=== PATIENT | female | born 1930 | race Caucasian/White ===

== ENCOUNTER 2017-02-19 06:27 | Inpatient (IN) | payer OTHER, MEDICARE ==
[~2017-02-19] VITALS: Ht 157.5 cm; Wt 69.9 kg
[~2017-02-19 06:27] MED LIST: AMLO5TAB22 PO; ARMO60TA PO; ATOR20TA PO; BIOTCAP PO; CALC500T21 PO; CLOP75TA PO; FISH1000 PO; GLIP2.5T2 PO; JANU100T PO; LISI-363 PO; METF500 PO; METO50TA11 PO
[2017-02-19] MEDS: NS 1000P @30 MLS/HR (KVO) IV SCH (07:00)
[2017-02-19] MEDS ORDERED: diphenhydrAMINE HCL 50 MG CAP PO SCH (07:00)
[2017-02-19 07:28] VITALS: BP 133/75; PULSE 84; RESP 18; TEMP 97.9; O2SAT 97
[2017-02-19] MEDS ORDERED: CALC1TAB12 PO (07:36)
[2017-02-19] MEDS ORDERED: ARMO60TA PO (07:36)
[2017-02-19] MEDS ORDERED: ASPI81TA81 PO (07:36)
[2017-02-19] MEDS ORDERED: SACU1TAB7 PO (07:36)
[2017-02-19] MEDS ORDERED: METO50TA11 PO (07:36)
[2017-02-19] MEDS ORDERED: PLAV75TA29 PO (07:36)
[2017-02-19] MEDS ORDERED: OMEG100010 PO (07:36)
[2017-02-19] MEDS ORDERED: FURO1TAB60 PO (07:36)
[2017-02-19] MEDS ORDERED: DULA0.5I SQ (07:36)
[2017-02-19] MEDS ORDERED: ATOR10TA15 PO (07:36)
[2017-02-19] MEDS ORDERED: METF-382 PO (07:36)
[2017-02-19 07:43] LABS: AUTOMATED NEUTROPHIL # 3.1 TH/MM3 (1.8-7.7); BASOPHIL % 0.7 % (0.0-2.0); EOSINOPHIL # 0.3 TH/MM3 (0-0.4); EOSINOPHIL % 5.6 % (0.0-4.0); HEMATOCRIT 35.6 % (35.0-46.0); HEMO FLAGS DIFF FINAL; LYMPH % 26.9 % (9.0-44.0); LYMPHOCYTE # 1.5 TH/MM3 (1.0-4.8); MEAN CELL VOLUME 84.5 FL (80.0-100.0); MEAN CORPUSCULAR HGB CONC 34.3 % (32.0-36.0); MONO % 11.4 % (0.0-8.0); NEUT % 55.4 % (16.0-70.0); PLATELET COUNT 182 TH/MM3 (150-450); RED BLOOD COUNT 4.21 MIL/MM3 (4.00-5.30); RED CELL DISTRIBUTION WIDTH 16.5 % (11.6-17.2); WHITE BLOOD COUNT 5.7 TH/MM3 (4.0-11.0)
[2017-02-19 07:53] LABS: APTT (PATIENT) 25.7 SEC (24.3-30.1); PROTHROMBIN TIME - PATIENT 11.2 SEC (9.8-11.6)
[2017-02-19 08:00] LABS: BICARBONATE 27.7 MEQ/L (21.0-32.0); POTASSIUM 3.6 MEQ/L (3.5-5.1)
[2017-02-19] MEDS ORDERED: IOHEXOL 350 MG/ML 50 ML BTL (for Cath Lab) OTHER ONE (08:27)
[2017-02-19] MEDS ORDERED: HEPARIN-NS/PF INJ 500 ML ONE ×3 (08:33→17:26)
[2017-02-19] MEDS ORDERED: MIDAZOLAM HCL 2 MG/2 ML VIAL ONE ×2 (08:34→16:41)
[2017-02-19] MEDS ORDERED: ONDANSETRON HCL 4 MG/2 ML VIAL IV PRN ×2 (09:30→19:00)
[2017-02-19] MEDS ORDERED: ATROPINE SULFATE 1 MG/ML VIAL IV PRN ×2 (09:30→19:00)
--- NOTE | 2017-02-19 09:31 | CATHPROC ---
[employer] HIS Report Study Information Study Number Admission Scheduled Start Study Start [id number] Feb 19 2017 6:27AM 02/19/2017 Feb 19 2017 8:05AM [place] Service Cardiac Catheterization Admit Source Facility Department Other [facility] - Change Management Specialist Physician and Clinical Staff Initial Antonio Alonso Animal Killer Alexandra Najera,SHAHRZAD Animal Killer Sury Corley RN Other cathlab, cathlab Recorder Roman Singh RCIS(BS) Procedures Performed Procedure Location (Site) Vessel Name Coronary Angiograms LCA Left Coronary Coronary Angiograms RCA Right Coronary L Heart Cath LV Gram-hand inj. LV LV Ventricle Equipment Time Decontamination Worker Description Size Mfg Part Number Used/Scraped TRANSDUCER, TRELLI [id number] 09:02 BAKER MELENDEZ * Used W/[employer] *[id number] 09:16 [employer] MEDICAL VASCADE, FR5 CLOSURE SYSTEM FR 5 Used *[id number]- INTRODUCER SET, 08:34 [employer] FR 5 [id number] Used MICROPUNCTURE, STIFFENED *[id number] *[id number] *[id number] 09:02 Hosted Systems INDUSTRIES PACK, CCL CUSTOM * Used *[id number] 09:03 [employer] MEDICAL SHEATH, FR5.5 PRELUDE 11CM FR 5 [id number] Used [id number] 09:02 [employer] MEDICAL WIRE, 3MMJ .035 180CM 180CM Used *[id number] 09:02 NAMIC MANIFOLD, 4 PORT * Used *[id number] 09:02 NYCOMED OMNIPAQUE, 350 MG, 150ML 150ML [id number] Used [id number] 09:02 [employer] BLANKET,WARM AIR CCL * Used *[id number] 08:34 Montiel [employer] MEDICAL SHEATH, FR5 TERUMO (10CM) FR 5 [id number] Used History: Current Medications Medication Dosage/Unit Route Frequency Last Date/Time Taken Statins (any) Beta José Luis ASA PLAVIX History: Allergies Allergy Reaction Sulfa UNKNOWN - REACTION OCCURED 50 YRS AGO History: Risk Factors Family History of Hypertension Dyslipidemia Previous ME Previous Heart Failure Premature CAD Yes Yes No No No Prior Valve Prior PCI Prior CABG Surgery No No No Cerebrovascular Peripheral Artery Chronic Lung On Dialysis Diabetes Diabetes Therapy Disease Disease Disease No Yes Yes No Yes Oral History: Symptoms/Diagnosis Selection Items Chest pain History: Stress Tests Stress or Imaging Studies Performed Yes Standard Exercise Stress Stress Test Result Stress Test Ischemia Risk/Extent Test Yes Positive Intermediate Stress Echo No Stress Test SPECT No Stress Test CMR No Cardiac CTA Coronary Calcium Score No No History: Other Disease Selection Items HTN History: Other Current Smoker No Labs Hgb (g/dl) Hct (%) RBC (MIL/MM3) WBC (l/cumm) Platelets (thousands) 11.60-17.00 35.00-51.00 4.00-5.90 4.00-11.00 150.00-450.00 12.2 35.6 4.2 5.7 182 Glucose (mg/dl) BUN (mg/dl) Creatinine (mg/dl) BUN:Creatinine (1:x) 74.00-106.00 7.00-18.00 0.50-1.30 10.00-20.00 139 23 0.9 25.6 Na (meq/l) K (meq/l) Cl (meq/l) CO2 (mmol/L) Ca (mg/dl) 136.00-145.00 3.50-5.10 98.00-107.00 21.00-32.00 8.50-10.10 142 3.6 106 27.7 9.3 PT (sec) PTT (sec) INR (PTT:PT) 9.80-11.60 24.30-30.10 0.90-1.10 11.2 25.7 1 CPK-MB (ng/ML) 0.50-3.60 Not Drawn Medication Medication Total Dose (Bolus/Oral) Medication Total Dosage/Unit 1% XYLOCAINE 20 mL FENTANYL 50 mcg OXYGEN 12 l/min VERSED 2 mg Medications (Bolus/Oral) Medication Time Given Dosage/Unit Administered By Reason OXYGEN 02/19/2017 8:41:22 AM 2 l/min Alexandra Najera 2 l/min OXYGEN given in lab by Alexandra Najera, RN via Nasal. 1% XYLOCAINE 02/19/2017 8:57:51 AM 20 mL Moon-Ariella, Antonio 20 mL 1% XYLOCAINE given in lab by Antonio Brooks in Right Groin via Subcutaneous. VERSED 02/19/2017 8:58:52 AM 2 mg Moon-Ariella, Antonio 2 mg VERSED given in lab by Antonio Brooks in Left Antecubital via Peripheral IV. FENTANYL 02/19/2017 8:58:58 AM 50 mcg Sury Corley 50 mcg FENTANYL given in lab by Sury Corley, RN in Left Antecubital via Peripheral IV. Ordered by Antonio Brooks. OXYGEN 02/19/2017 9:00:02 AM 4 l/min Alexandra Najera 4 l/min OXYGEN given in lab by Alexandra Najera, SHAHRZAD via Nasal. OXYGEN 02/19/2017 9:07:02 AM 6 l/min Alexandra Najera 6 l/min OXYGEN given in lab by Alexandra Najera, SHAHRZAD via Nasal. Medication (Drip) Medication Time Given Dosage/Unit Concentration/Unit Diluent (ml) Solutio n IV Solutions 02/19/2017 8:27:09 AM 0 mL (IV) 500 NaCl .9 Patient arrived on IV Solutions given by jese sawant in Left Antecubital via Peripheral IV. Pump /Drip Flow = 20 ml/hr using NaCl .9. Ordered by Antonio Brooks. Initial Case Assessment Cardiovascular HR Rhythm NIBP Chest Pain 91 sinus 148/94 0 Edema Present Skin color Skin None Normal Warm Dry Circulatory - Right Pulses Dorsalis Pedis Femoral 3 3 Scale (0,1,2,3,4,d) Circulatory - Left Pulses Dorsalis Pedis Femoral 3 3 Scale (0,1,2,3,4,d) Neurological State Oriented to time-place- Alert Moves all extremities person Respiration - General Respiration Rate SpO2 (%) (B/min) 15 94 Final Case Assessment Cardiovascular HR Rhythm NIBP Chest Pain 91 sinus 148/94 0 Edema Present Skin color Skin None Normal Warm Dry Circulatory - Right Pulses Dorsalis Pedis Femoral 3 3 Scale (0,1,2,3,4,d) Circulatory - Left Pulses Dorsalis Pedis Femoral 3 3 Scale (0,1,2,3,4,d) Neurological State Oriented to time-place- Alert Moves all extremities person Respiration - General Respiration Rate SpO2 (%) (B/min) 15 95 Chronological Log Time Study Chronological Log 8:27:00 Patient arrived via Bed. 8:27:01 Patient Name, D.O.B, / Armband Verified By R.N. 8:27:01 Consent signed by the physician and the patient and verified by the Change Management Specialist staff. 8:27:02 Pre-op and post- op instructions given; patient acknowledges understanding of instructions. 8:27:02 Verbal Stimulation=2 Physical Stimulation=2 Airway=2 Respiration=2 TOTAL=8. (0=absent, 1=li mited, 2=present) 8:27:03 Presedation assessment performed by Change Management Specialist RN. 8:27:04 Immediate Presedation assesment performed by physician. 8:27:04 Patient has been NPO for More than 6Hrs. 8:27:05 Skin Breakdown- none per patient 8:27:06 Patient Warmer Placed on the Table. 8:27:07 Fawn Prominences Protected 8:27:09 A # 20 IV was noted in the Antecubital (left). Grade = 0 Patient arrived on IV Solutions given by cathlab, cathlab in Left Antecubital via Peripheral IV . Pump/Drip Flow = 20 8:27:09 ml/hr using NaCl .9. Ordered by Antonio Brooks. 8:27:10 History and physical on the chart or being dictated. Assessment: Initial Case, HR=91 BPM, Rhythm=sinus, PMJK=506/94 mmhg, Chest Pain=0, Edema=None, Color=Normal, Skin = Warm, Dry Right Pulses: Matias Ped=3, Femoral=3 8:33:56 Left Pulses: Matias Ped=3, Femoral=3 Neurological: State=Alert, Ox3, CHOPRA Respiration: Resp=15 B/min, SpO2=94 % Vitals capture started with the following parameters, Patient=Adult, Interval=5 min, Initial Pre entll=257 mmHg, 8:33:59 Deflation Rate=5 mmHg 8:34:32 HR=95 bpm, OILM=012/94 mmhg, SpO2=92 %, Resp=18 B/min, Pain=0, Mesha=10, Weston=2 8:36:07 Reference ECG taken 8:39:33 WS=601 bpm, QZYT=297/87 mmhg, SpO2=92.0 %, Resp=20 B/min, Pain=0, Mesha=10, Weston=2 8:40:58 Bilateral groins prepped with 2% chlorhexidine, and with a 3 min. waiting time. 8:41:22 2 l/min OXYGEN given in lab by Alexandra Najera, RN via Nasal. 8:44:28 paged 8:44:30 HR=90 bpm, XBSZ=041/85 mmhg, SpO2=95 %, Resp=15 B/min 8:45:26 MD responded 8:45:47 Pressure channel 1 zeroed. 8:49:35 HR=93 bpm, RTCH=988/84 mmhg, SpO2=96.0 %, Resp=15 B/min, Pain=0, Mesha=10, Weston=2 8:50:02 MD arrived. 8:52:08 Contrast Scanned 8:52:08 Immediate Presedation assesment performed by physician. 8:54:32 HR=99 bpm, TXCT=762/83 mmhg, SpO2=95.0 %, Resp=13 B/min, Pain=0, Mesha=10, Weston=2 Time Out. Correct patient, correct procedure,correct physician, ,power injector not loaded with contrast with surgical 8:56:09 team present. Time Out Concurred by , individual staff in procedure 8:57:21 Case Start 8:57:22 Verbal Stimulation=2 Physical Stimulation=2 Airway=2 Respiration=2 TOTAL=8. (0=absent, 1=gonsalez ited, 2=present) 8:57:51 20 mL 1% XYLOCAINE given in lab by Antonio Brooks in Right Groin via Subcutaneous. 8:58:52 2 mg VERSED given in lab by Antonio Brooks in Left Antecubital via Peripheral IV. 50 mcg FENTANYL given in lab by Sury Corley, SHAHRZAD in Left Antecubital via Peripheral IV. Order ed by Todd, 8:58:58 Antonio. 8:59:33 FF=729 bpm, TUHC=688/85 mmhg, SpO2=93.0 %, Resp=16 B/min, Pain=0, Mesha=10, Weston=2 9:00:02 4 l/min OXYGEN given in lab by Alexandra Najera, RN via Nasal. 9:00:37 Access site was Right Femoral Artery. A INTRODUCER SET, MICROPUNCTURE, STIFFENED FR 5 was advanced into the Fem Art (right) using the 9:00:42 Percutaneous technique. A SHEATH, FR5 TERUMO (10CM) FR 5 was exchanged in the Fem Art (right). This was necessary in ord er to 9:00:50 accomodate a larger catheter. 9:02:20 An injection in the Fem Art (right) was made through the SHEATH, FR5 TERUMO (10CM) FR 5. A JR 4.0 INFINITI CATHETER FR 5 was advanced over a wire. OMNIPAQUE, 350 MG, 150ML 150ML was use d for ::42 injections. Recorded Pressure: LV, HR=90, Condition=Condition 1 9:04:13 (Left Ventricle) LV 119/12/14 9:04:25 The LV was manually injected with 10 cc's and visualized. OMNIPAQUE, 350 MG, 150ML 150ML use d. 9:04:39 HR=99 bpm, AVPK=892/68 mmhg, SpO2=92.0 %, Resp=16 B/min, Pain=0, Mesha=10, Weston=2 Recorded Pressure: LV, Ao, HR=99, Condition=Condition 1 9:04:46 (Left Ventricle) LV 123/20/27, (Aorta) Ao 121/65/91 9:05:09 The RCA was injected and visualized at various angles. OMNIPAQUE, 350 MG, 150ML 150ML used. Recorded Pressure: Ao, HR=93, Condition=Condition 1 9:05:24 (Aorta) Ao 109/62/83 9:05:52 Catheter was removed A JL 4.0 INFINITI CATHETER FR 5 was advanced over a wire. OMNIPAQUE, 350 MG, 150ML 150ML was us ed for 9:05:54 injections. 9:07:02 6 l/min OXYGEN given in lab by Alexandra Najera, SHAHRZAD via Nasal. 9:07:17 The LCA was injected and visualized at various angles. OMNIPAQUE, 350 MG, 150ML 150ML used . 9:09:36 HR=87 bpm, MHVP=327/64 mmhg, SpO2=89.0 %, Resp=4 B/min 9:09:37 HR=87 bpm, SpO2=89 %, Resp=4 B/min 9:10:23 Catheter was removed 9:14:32 HR=81 bpm, BLDJ=041/65 mmhg, SpO2=97.0 %, Resp=9 B/min, Pain=0, Mesha=10, Weston=2 9:15:45 VASCADE, FR5 CLOSURE SYSTEM FR 5 placement in the Fem Art (right) 9:16:02 Case End 9:19:29 HR=95 bpm, IYPM=454/71 mmhg, SpO2=96.0 %, Resp=16 B/min, Pain=0, Mesha=10, Weston=2 9:22:02 Catheter(s) removed without difficulty Assessment: Final Case, HR=91 BPM, Rhythm=sinus, UJNR=001/94 mmhg, Chest Pain=0, Edema=None, Color=Normal, Skin = Warm, Dry Right Pulses: Matias Ped=3, Femoral=3 9:22:05 Left Pulses: Matias Ped=3, Femoral=3 Neurological: State=Alert, Ox3, CHOPRA Respiration: Resp=15 B/min, SpO2=95 % 9:22:14 Sterile dressing applied to site 9:22:15 No case complications noted. 9:22:15 Cine recording checked. 9:22:17 Bedside Report will be given. 9:22:19 Contrast Scanned 9:22:21 Verbal Stimulation=2 Physical Stimulation=2 Airway=2 Respiration=2 TOTAL=8. (0=absent, 1=li mited, 2=present) 9:22:29 A Left Heart Cath was performed. 9:24:33 HR=89 bpm, XQGY=501/73 mmhg, SpO2=95.0 %, Resp=20 B/min, Pain=0, Mesha=10, Weston=2 9:28:23 Vitals capture stopped. End Study - Contrast Media Used In Study Contrast Total Opened (mL) Total Used (mL) Total Wasted (mL) Omnipaque 65 65 0 End Study - Maximum Contrast Load Max Contrast Load (mL) 382.8 End Study - Radiation Exposure Fluoro Time (minutes) 2.5 End Study - Patient Disposition Complications Transferred To Interventional Outcome No Change Management Specialist Holding No attempt made
--- NOTE | 2017-02-19 09:53 | MA ---
cc: PARESH MORRIS DATE OF 1930 DATE OF PROCEDURE February 19, 2017 PROCEDURE PERFORMED 1. Left heart catheterization. 2. Selective right and left coronary angiography. 3. Left ventriculogram. 4. Right common femoral artery angiography. INDICATIONS Angina. Positive stress test. PROCEDURE APPROACH Right transfemoral. DESCRIPTION OF PROCEDURE Consent signed. The patient was brought into the Cardiac Catheterization Laboratory in a fasting state. The right and left groins were prepped and draped in a sterile fashion. Using 1% lidocaine for local anesthesia and a micropuncture kit, a 5-Bangladeshi sheath was inserted into the right common femoral artery. Right common femoral angiography was performed to confirm position of the sheath. Then selective right and left coronary angiography was performed with JR-4 and a JL-4 diagnostic catheters. Angiography was taken in multiple views. The JR-4 diagnostic catheter was introduced over to the ventricular wire ; this was followed by pressure recordings, left ventriculogram and pullback. The patient tolerated the procedure well without complications. Estimated blood loss was less than 20 cc. TOTAL CONTRAST USED 50 cc. The right groin access site was closed with a vascular closing device. RESULTS HEMODYNAMICS The left ventricular pressure was 123/20 with an LVEDP o 27. The aortic pressure was 109/62 with a mean of 83. There was no gradient upon pullback from the left ventricle to the aorta. LEFT VENTRICULOGRAPHY The left ventriculogram revealed anterior wall hypokinesis with an estimated ejection fraction of 30-35%. ANGIOGRAPHY RIGHT CORONARY ARTERY: The right coronary artery is a dominant vessel, has calcifications from the proximal segment of the distal segment. It has 70% lesion in its proximal segment right after the takeoff of the first RV branch. The rest of the vessel has WESTON-3 flow and nonobstructive coronary artery disease. The vessel is also giving a PDA and a posterior lateral branch which are patent with WESTON-3 flow and nonobstructive coronary artery disease. LEFT MAIN: The left main is patent with nonobstructive coronary artery disease. LAD: The left anterior descending artery is a transapical vessel, has a significant 99% lesion in its proximal segment. This lesion is 10 mm in length and heavily calcified. The vessel has WESTON-3 flow throughout and has myocardial bridging in the distal segment of the LAD. The LAD is also giving off one prominent diagonal which is small and patent. RAMUS: The patient has a ramus intermedius which is patent. This vessel is prominent, has WESTON-3 flow. LEFT CIRCUMFLEX ARTERY: The circumflex has minimal luminal irregularities, however, no significant obstructive coronary artery disease. The vessel is giving off two OM branches which are patent with WESTON-3 flow and no critical coronary artery disease CONCLUSIONS 1. Two vessel coronary artery disease 2. Severe LV systolic dysfunction and elevated LVEDP. RECOMMENDATIONS Given the patient's low left ventricular ejection fraction as well as diabetes and significant calcification of the lesion site in the LAD, would consult to CT Surgery for CABG versus high risk PCI. If high risk PCI would be pursued, she would need an Impella device for support and atherectomy. MD AUDIE Dominguez/ALEXSANDRA /9:27 AM /9:35 AM JADEN
--- NOTE | 2017-02-19 11:42 | RADRPT ---
EXAM DATE/TIME: 02/19/2017 00:03 [place] COMPARISON: No previous studies available for comparison. INDICATIONS : Bruit. MEDICAL HISTORY : Hypothyroidism. Hypertension. Diabetes mellitus type 2. Stroke. Parasitic infection within liver. SURGICAL HISTORY : Cholecystectomy. Right carpal tunnel surgery. ENCOUNTER: Initial ACUITY: 1 day PAIN SCORE: 2/10 LOCATION: Bilateral neck PEAK SYSTOLIC VELOCITIES (cm/sec): ICA/CCA RATIO: Right: 1.1 Left: 1.5 ICA: Right: 88 Left: 93 CCA: Right: 79 Left: 62 ECA: Right: 95 Left: 69 VERTEBRAL: Right: 53 antegrade Left: 39 antegrade Elevated flow velocities and ICA/CCA ratios have been found to correlate with increased degrees of vessel stenosis, calculated as percentage of diameter relative to a normal segment of distal ICA/CCA FINDINGS: RIGHT CAROTID: Moderate mostly eccentric plaque through the internal carotid bulb . No significant stenosis is visu alized. The waveforms are within normal limits. LEFT CAROTID: Moderate mostly eccentric plaque through the internal carotid bulb . No significant stenosis is visu alized. The waveforms are within normal limits. VERTEBRAL ARTERIES: Antegrade flow is seen in both vertebral arteries. MISCELLANEOUS: None. CONCLUSION: Eccentric moderate atherosclerotic disease without any two-dimensional stenosis. Brett Henry MD on February 19, 2017 at 11:39 Board Certified Radiologist. This report was verified electronically.
--- NOTE | 2017-02-19 14:37 | MB ---
cc: ARTURO,ANTONIO OBRIEN,IMAN BARRIOS,GLADYS Nguyen D.O. DATE OF CONSULTATION: 02/19/2017 DATE OF : 1930 HISTORY OF PRESENT ILLNESS An 86-year-old patient of Dr. Gladys Barrios and Dr. Antonio Moon who has been followed by cardiology, [facility], since October. She started out with some episodes of significant shortness of breath and was diagnosed with heart failure in January 2017. She was admitted to the ICU at that time. She has since been treated with Entresto and oral diuretics. She has had some worsening shortness of breath. Her last episode was in January. They did an echocardiogram which showed an EF of 25-30% in January 2017. She underwent a cardiac cath today which showed a proximal LAD of 99%. We were consulted to evaluate for possible coronary artery bypass graft x1 versus high-risk PCI. The patient has [place] Class II heart failure. PAST MEDICAL HISTORY 1. Paroxysmal atrial fibrillation. 2. Coronary artery disease as above. 3. Cardiomyopathy. 4. CHF; started on Entresto in January 2017. 5. Chronic kidney disease, stage III. 6. 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 Her only residual is with her handwriting. 7. Diabetes mellitus type 2. 8. Hyperlipidemia. 9. Hypertension. 10.Hypothyroidism. 11.Left bundle branch block. 12.Mild mitral regurgitation. 13.Mitral valve prolapse. 14.Osteoporosis. 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 16.Retinopathy. 17.Mild tricuspid regurgitation in January 2017. ALLERGIES SULFA. MEDICATIONS Home meds include: 1. Yeoman Thyroid 60 mg daily. 2. Atorvastatin 10 mg, two tablets p.o. daily. 3. Entresto 49/51 mg p.o. b.i.d. 4. Lasix 40 mg daily. 5. Metformin 1000, p.o. extended-release daily. 6. Metoprolol 50 mg b.i.d. 7. Nixa-3. 8. Plavix 75. 9. Trulicity 1.5, q.7 days. FAMILY HISTORY Mother at 65 from complications of a brain tumor. Father at age 56 from complications of diabetes and heart failure. Her son lives with her. She is with four children. SOCIAL HISTORY Retired from medical billing. Smoked from the age of [age], one pack per week. Rare alcohol. REVIEW OF SYSTEMS GENERAL: In general no night sweats, fever, heat or cold intolerance. SKIN: No psoriasis, itching or hives. HEENT: No blurred vision or hearing loss. RESPIRATORY: Positive for cough and shortness of breath. CARDIOVASCULAR: No chest pain. She did have some paroxysmal nocturnal dyspnea which has improved since she has been on the Entresto and the Lasix. GASTROINTESTINAL: Occasional diarrhea. No nausea or vomiting. GENITOURINARY: No burning, frequency, urgency. HOME HEALTH OCCUPATIONAL THERAPIST: Positive for history of CVA, only residual with her handwriting. ENDOCRINE: Positive for diabetes and hypothyroidism. PHYSICAL EXAMINATION VITAL SIGNS: Blood pressure 130/70, heart rate 84, T-max 97.9. O2 sat 97 on room air. GENERAL: Patient is awake and alert, in no acute distress. HEENT: Head is normocephalic, atraumatic. Pupils equal and reactive. Oral mucosa pink and moist. NECK: Supple. No JVD. HEART: Heart sounds S1, S2, regular rate and rhythm. No audible rubs, murmurs or gallops. LUNGS: Clear to auscultation. No wheezes, rales or rhonchi. ABDOMEN: Soft, nontender. No masses or organomegaly. EXTREMITIES: No cyanosis, clubbing or edema. LABORATORY Hemoglobin 12, hematocrit 35, white cell count 5.7, platelet count 182. Sodium 142, potassium 3.6, BUN 23, creatinine 0.98, glucose 139. INR 1.0. IMAGING Carotid ultrasound shows some eccentric moderate disease without any two-dimensional stenosis. EKG EKG shows atrial fibrillation with a left bundle branch block, some poor R-wave progression. IMPRESSION This is an 86-year-old patient, again of Dr. Gladys Barrios and Dr. Antonio Moon, with recently diagnosed cardiomyopathy, [place] Class II, EF of 25% with ischemia. She has undergone heart catheterization revealing a 99% proximal LAD and a 40% stenosis in the RCA. The films will be evaluated for Dr. Iman Obrien to evaluate coronary artery bypass graft x1 versus high-risk PCI by Dr. Antonio Moon. Further planning as per Dr. Obrien. Dictated by: LEX Jaeger Iman MD PHUC Richards /12:44 PM /2:41 PM
[2017-02-19] MEDS ORDERED: HEPARIN SODIUM - IV 10,000 UNITS/10 ML VIAL ONE (16:41)
[2017-02-19] MEDS ORDERED: PROTAMINE SULFATE 50 MG/5 ML VIAL ONE (18:39)
[2017-02-19] MEDS ORDERED: TICAGRELOR 90 MG TAB PO ONE ×2 (18:52→19:00)
[2017-02-19] MEDS ORDERED: SODIUM CHLOR 0.9% 1000 ML INJ 1,000 ML IV SCH (18:55)
[2017-02-19] MEDS ORDERED: ACETAMINOPHEN 325 MG TAB PO PRN (19:00)
[2017-02-19] MEDS ORDERED: MISC INFORMATION XX ONE (19:00)
--- NOTE | 2017-02-19 19:13 | CATHPROC ---
Rocket Raise HIS Report Study Information Study Number Admission Scheduled Start Study Start [id number] Feb 19 2017 6:27AM 02/19/2017 Feb 19 2017 4:44PM [place] Service Cardiac Catheterization Admit Source Facility Department Other [facility] - [facility] Physician and Clinical Staff Initial Antonio Alonso Merchandise Adjustment Clerkjesse Luque RN, Alexandra Torrez RN Other Roman Singh RCIS(BS) Recorder Papo Cadena,RT(R) Scrub Marquis Olvera,RT(R) Procedures Performed Procedure Location (Site) Vessel Name Coronary Angiograms LCA Left Coronary Coronary Angiograms RCA Right Coronary Drug Eluting Inflatio LAD Prox Left Coronary Drug Eluting Inflatio RCA Prox Right Coronary Impella Fem Art (left) Femoral Art L Heart Cath PTCA LAD Prox Left Coronary PTCA RAMUS CIRC PTCA RCA Prox Right Coronary Wire insertion Fem Art (left) Femoral Art Wire insertion Fem Art (right) Femoral Art Equipment Time Back Padder Description Size Mfg Part Number Used/Scraped PERCLOSE, PRO GLIDE CLOSER 17:06 [employer] FR 6 [address]74 *[id number] Used DEVICE PERCLOSE, PRO GLIDE CLOSER 17:06 [employer] FR 6 [address]254 *[id number] Used DEVICE PERCLOSE, PRO GLIDE CLOSER 18:44 [employer] FR 6 [address]65 *[id number] Used DEVICE WIRE, BALANCE MIDDLEWEIGHT [id number] 18:04 [employer] 190CM Used 190CM *[id number] WIRE, BALANCE MIDDLEWEIGHT [id number] 17:40 [employer] 300CM Used 300CM *[id number] 17:24 [employer] WIRE, SUPERCORE 300CM 300CM Used *[id number] 17:23 ABIOMED PUMPSET, IMPELLA 2.5 2.5 [id number] Used TRANSDUCER, TRUWAVE [id number] 16:55 BAKER MELENDEZ * Used W/STOCKCOCK *[id number] CARDIOVASCULAR CATHETER, CORONARY CLASSIC [id number] 17:50 Used SYSTEMS INC. 1.25MM *[id number] CARDIOVASCULAR WIRE, VIPER ADVANCE [id number] 17:51 Used SYSTEMS INC. CORONARY FLP *[id number] MPIS-502-10.0- INTRODUCER SET, 16:55 [employer]OOK [employer]. FR 5 SC-NT-U-SST Used MICROPUNCTURE, STIFFENED *[id number] MPIS-502-10.0- INTRODUCER SET, 17:17 [employer]. FR 5 SC-NT-U-SST Used MICROPUNCTURE, STIFFENED *[id number] *[id number] *[id number] 08 *[id number] 16:55 MEDLINE [employer] PACK, CCL CUSTOM * Used *[id number] BALLOON, 2.5 X 15MM NC [id number] 18:04 MEDTRONIC 15MM Used EUPHORA *[id number] BALLOON, 3.0 X 15MM NC [id number] 18:13 MEDTRONIC 15MM Used EUPHORA *[id number] BALLOON, 3.5 X 12MM NC [id number] 18:31 MEDTRONIC 12MM Used EUPHORA *[id number] STENT, 2.75 18 RESOLUTE [id number] 18:09 MEDTRONIC 2.75 18 Used INTEGRITY RX *[id number] STENT, 3.0 15 RESOLUTE [id number] 18:27 MEDTRONIC 3.0 15 Used INTEGRITY RX *[id number] 17:37 MEDTRONIC/AVE EBU 3.5 Z2 GUIDE CATHETER FR 6 Used *6242505 [id number] 18:08 [employer] MEDICAL 30 RIP INDEFLATOR Used *3382817 [id number] 16:55 [employer] MEDICAL SHEATH, FR6.5 PRELUDE 11CM FR 6.5 038ACT Used *[id number] 16:55 [employer] MEDICAL WIRE, 3MMJ .035 180CM 180CM Used *[id number] [id number] 16:55 NAMIC MANIFOLD, 4 PORT * Used *1220704 16:55 NYCOMED OMNIPAQUE, 350 MG, 150ML 150ML [id number] Used [id number] 16:55 WITT MEDICAL BLANKET,WARM AIR CCL * Used *[id number] 17:11 TERUMO MEDICAL SHEATH, FR8 TERUMO (10CM) FR 8 [id number] Used [id number] 17:44 TERUMO MEDICAL/NGOZI CATHETER, FINECROSS 150CM FR 5 Used *[id number] Equipment Model, Serial, Lot Number and Expiration Data Description Model Number Serial Number Lot Number Expiration Date CATHETER, FINECROSS 150CM [id number] 06-05-2018 INTRODUCER SET, [id number] 01-17-2020 MICROPUNCTURE, STIFFENED PERCLOSE, PRO GLIDE CLOSER [id number] 10-03-2018 DEVICE PERCLOSE, PRO GLIDE CLOSER [id number] 11-03-2018 DEVICE PERCLOSE, PRO GLIDE CLOSER [id number] 11-03-2018 DEVICE STENT, 2.75 18 ZEINA [id number] 08-28-2018 INTEGRITY RX STENT, 3.0 15 ZEINA [id number] 10-22-2018 INTEGRITY RX History: Current Medications Medication Dosage/Unit Route Frequency Last Date/Time Taken Statins (any) Beta José Luis ASA PLAVIX History: Allergies Allergy Reaction Sulfa UNKNOWN - REACTION OCCURED 50 YRS AGO History: Risk Factors Family History of Hypertension Dyslipidemia Previous MS Previous Heart Failure Premature CAD Yes Yes No No No Prior Valve Prior PCI Prior CABG Surgery No No No Cerebrovascular Peripheral Artery Chronic Lung On Dialysis Diabetes Diabetes Therapy Disease Disease Disease No Yes Yes No Yes Oral History: Symptoms/Diagnosis Selection Items Angina-unstable Chest pain History: Stress Tests Stress or Imaging Studies Performed Yes Standard Exercise Stress Test No Stress Echo No Stress Test SPECT Stress Test SPECT Result Stress Test SPECT Ischemia Risk/Extent Yes Positive Intermediate Stress Test CMR No Cardiac CTA Coronary Calcium Score No No History: Other Disease Selection Items HTN History: Other Current Smoker No Labs Hgb (g/dl) Hct (%) RBC (MIL/MM3) WBC (l/cumm) Platelets (thousands) 11.60-17.00 35.00-51.00 4.00-5.90 4.00-11.00 150.00-450.00 12.2 35.6 4.2 5.7 182 Glucose (mg/dl) BUN (mg/dl) Creatinine (mg/dl) BUN:Creatinine (1:x) 74.00-106.00 7.00-18.00 0.50-1.30 10.00-20.00 139 23 0.9 25.6 Na (meq/l) K (meq/l) Cl (meq/l) CO2 (mmol/L) Ca (mg/dl) 136.00-145.00 3.50-5.10 98.00-107.00 21.00-32.00 8.50-10.10 142 3.6 106 27.7 9.3 PT (sec) PTT (sec) INR (PTT:PT) 9.80-11.60 24.30-30.10 0.90-1.10 11.2 25.7 1 CPK-MB (ng/ML) 0.50-3.60 Not Drawn Medication Medication Total Dose (Bolus/Oral) Medication Total Dosage/Unit 1% XYLOCAINE 20 mL BRILLINTA 180 mg FENTANYL 100 mcg HEPARIN 8000 units PROTAMINE 50 mg VERSED 2 mg Medications (Bolus/Oral) Medication Time Given Dosage/Unit Administered By Reason 1% XYLOCAINE 02/19/2017 5:09:48 PM 20 mL Antonio Brooks Patient arrived on 20 mL 1% XYLOCAINE given by Antonio Brooks in Left Groin via Subcutaneous. HEPARIN 02/19/2017 5:26:26 PM 5000 units Rebel MARKHAM, Carlos 5000 units HEPARIN given in lab by Rebel MARKHAM, Carlos in Left Antecubital via Peripheral IV. VERSED 02/19/2017 5:44:26 PM 1 mg Rebel MARKHAM, Carlos 1 mg VERSED given in lab by Carlos Luque RN in Left Antecubital via Peripheral IV. HEPARIN 02/19/2017 5:44:27 PM 3000 units Rebel MARKHAM, Carlos 3000 units HEPARIN given in lab by Rebel MARKHAM, Carlos in Left Antecubital via Peripheral IV. FENTANYL 02/19/2017 5:54:07 PM 50 mcg Rebel MARKHAM, Carlos 50 mcg FENTANYL given in lab by Rebel MARKHAM, Carlos in Left Antecubital via Peripheral IV. VERSED 02/19/2017 6:00:09 PM 1 mg Rebel MARKHAM, Carlos 1 mg VERSED given in lab by Carlos Luque RN in Left Antecubital via Peripheral IV. FENTANYL 02/19/2017 6:16:54 PM 50 mcg Carlos Luque RN 50 mcg FENTANYL given in lab by Carlos Luque RN in Left Antecubital via Peripheral IV. PROTAMINE 02/19/2017 6:42:25 PM 50 mg Carlos Luque RN 50 mg PROTAMINE given in lab by Rebel MARKHAM, Carlos in Left Antecubital via Peripheral IV. BRILLINTA 02/19/2017 6:49:13 PM 180 mg Carlos Luque RN 180 mg BRILLINTA given in lab by Carlos Luque RN in Per mouth via Oral. Medication (Drip) Medication Time Given Dosage/Unit Concentration/Unit Diluent (ml) Solution IV Solutions 02/19/2017 4:48:24 PM 0 mL (IV) 500 NaCl .9 Patient arrived on IV Solutions via Peripheral IV. Pump/Drip Flow = 20 ml/hr using NaCl .9. Initial Case Assessment Cardiovascular HR Rhythm NIBP Chest Pain 96 Irregular 143/95 0 Edema Present Skin color Skin None Normal Warm Dry Circulatory - Right Pulses Dorsalis Pedis Femoral 3 3 Scale (0,1,2,3,4,d) Circulatory - Left Pulses Dorsalis Pedis Femoral 3 3 Scale (0,1,2,3,4,d) Neurological State Oriented to time-place- Alert Moves all extremities person Respiration - General Respiration Rate SpO2 (%) O2 (lpm) (B/min) 15 91 0 Final Case Assessment Cardiovascular HR Rhythm NIBP Chest Pain 85 Sinus 140/78 0 Edema Present Skin color Skin None Normal Warm Dry Circulatory - Right Pulses Dorsalis Pedis Femoral 3 3 Scale (0,1,2,3,4,d) Circulatory - Left Pulses Dorsalis Pedis Femoral 3 3 Scale (0,1,2,3,4,d) Neurological State Oriented to time-place- Alert Moves all extremities person Respiration - General Respiration Rate SpO2 (%) O2 (lpm) (B/min) 22 90 0 Chronological Log Time Study Chronological Log 16:45:13 Patient arrived via Bed. 16:45:17 Patient Name, D.O.B, / Armband Verified By R.N. 16:45:18 Consent signed by the physician and the patient and verified by the [employer] staff. 16:45:18 Pre-op and post- op instructions given; patient acknowledges understanding of instructions. 16:45:19 Verbal Stimulation=2 Physical Stimulation=2 Airway=2 Respiration=2 TOTAL=8. (0=absent, 1=li mited, 2=present) Vitals capture started with the following parameters, Patient=Adult, Interval=5 min, Initial Pr scdtie=780 mmHg, 16:46:30 Deflation Rate=5 mmHg 16:46:55 Presedation assessment performed by Game [employer] RN. 16:46:58 Patient has been NPO for More than 6Hrs. 16:46:59 Skin Breakdown- none per patient. 16:47:06 TQ=690 bpm, MUGF=145/95 mmhg, SpO2=92.0 %, Resp=13 B/min, Pain=0, Mesha=10, Weston=2 16:47:09 Patient Warmer Placed on the Table. 16:47:10 Fawn Prominences Protected 16:47:13 A # 20 IV was noted in the Antecubital (left). Grade = 0 16:48:24 Patient arrived on IV Solutions via Peripheral IV. Pump/Drip Flow = 20 ml/hr using NaCl .9. 16:48:52 History and physical on the chart or being dictated. Assessment: Initial Case, HR=96 BPM, Rhythm=Irregular, KAIB=294/95 mmhg, Chest Pain=0, Edema=No ne, Color=Normal, Skin = Warm, Dry Right Pulses: Matias Ped=3, Femoral=3 16:48:53 Left Pulses: Matias Ped=3, Femoral=3 Neurological: State=Alert, Ox3, CHOPRA Respiration: Resp=15 B/min, SpO2=91 %, O2=0 lpm 16:52:05 HR=95 bpm, VLXC=197/90 mmhg, SpO2=91.0 %, Resp=20 B/min, Pain=0, Mesha=10, Weston=2 16:55:08 Bilateral groins prepped with 2% chlorhexidine, and with a 3 min. waiting time. 16:57:06 HR=95 bpm, TJBJ=295/88 mmhg, SpO2=91.0 %, Resp=20 B/min, Pain=0, Mesha=10, Weston=2 17:02:09 HR=93 bpm, CQEU=507/87 mmhg, SpO2=92.0 %, Resp=20 B/min, Pain=0, Mesha=10, Weston=2 17:04:07 Pressure channel 1 zeroed. 17:07:02 MD arrived. 17:07:06 HR=92 bpm, YYXZ=885/87 mmhg, SpO2=92.0 %, Resp=33 B/min, Pain=0, Mesha=10, Weston=2 Time Out. Correct patient, correct procedure,correct physician,power injector not loaded with c radha with surgical 17:08:43 team present. Time Out Concurred by MD, individual staff in procedure 17:09:23 Case Start 17:09:48 Patient arrived on 20 mL 1% XYLOCAINE given by Antonio Brooks in Left Groin via Subcutan eous. 17:12:07 HR=93 bpm, HTEI=432/89 mmhg, SpO2=92.0 %, Resp=26 B/min, Pain=0, Mesha=10, Weston=2 17:12:29 Access site was Left Femoral Artery. 17:12:59 An injection in the Fem Art (left) was made through the INTRODUCER SET, MICROPUNCTURE, STIF FENED FR 5. 17:17:10 HR=94 bpm, HHJK=710/86 mmhg, SpO2=92.0 %, Resp=27 B/min, Pain=0, Mesha=10, Weston=2 17:19:56 Access site was Left Femoral Artery. 17:20:23 An injection in the Fem Art (left) was made through the INTRODUCER SET, MICROPUNCTURE, STIF FENED FR 5. 17:22:11 HR=90 bpm, CXCS=792/87 mmhg, SpO2=93.0 %, Resp=17 B/min, Pain=0, Mesha=10, Weston=2 Two Perclose deployed as a preclose. 17:26:01 17:26:26 5000 units HEPARIN given in lab by Carlos Luque RN in Left Antecubital via Peripheral IV. 17:26:36 A WIRE, SUPERCORE 300CM 300CM was inserted via Fem Art (left). 17:27:12 HR=82 bpm, KECO=749/80 mmhg, SpO2=93.0 %, Resp=16 B/min, Pain=0, Mesha=10, Weston=2 17:28:16 A sheath was advanced into the Fem Art (left) using the Percutaneous technique. Impella she ath 17:28:49 A WIRE, SUPERCORE 300CM 300CM was inserted via Fem Art (left). A AL 1 INFINITI CATHETER FR 6 was advanced over a wire. OMNIPAQUE, 350 MG, 150ML 150ML was used for 17:29:04 injections. 17:29:15 Reference ECG taken 17:30:17 Activated Clotting Time Drawn 17:30:25 Wire removed 17:30:37 A wire was inserted via Fem Art (left). 0.018 Impella wire 17:31:48 Catheter was removed 17:32:40 HR=83 bpm, QYLT=623/73 mmhg, SpO2=92.0 %, Resp=24 B/min, Pain=0, Mesha=10, Weston=2 An PUMPSET, IMPELLA 2.5 2.5 was advanced into the left ventricle . Proper placement was confir med under 17:34:03 fluoroscopy and the catheter was sutured in place. 17:34:21 Wire removed 17:35:59 ACT (Normal Range 90-180) = 219 17:37:08 HR=84 bpm, LTEH=936/80 mmhg, SpO2=96.0 %, Resp=26 B/min, Pain=0, Mesha=10, Weston=2 17:37:56 Access site was Right Femoral Artery. 17:38:02 A SHEATH, FR6.5 PRELUDE 11CM FR 6.5 was advanced into the Fem Art (right) using the Percuta neous technique. A EBU 3.5 Z2 GUIDE CATHETER FR 6 was advanced over a wire. OMNIPAQUE, 350 MG, 150ML 150ML was u sed for 17:38:42 injections. 17:40:41 The LCA was injected and visualized at various angles. OMNIPAQUE, 350 MG, 150ML 150ML used . 17:42:44 HR=84 bpm, VBIN=799/103 mmhg, SpO2=94.0 %, Resp=12 B/min, Pain=0, Mesha=10, Weston=2 17:44:26 1 mg VERSED given in lab by Carlos Luque RN in Left Antecubital via Peripheral IV. 17:44:27 3000 units HEPARIN given in lab by Carlos Luque RN in Left Antecubital via Peripheral IV. 17:45:40 A WIRE, BALANCE MIDDLEWEIGHT 300CM 300CM was inserted via Fem Art (right). 17:47:05 Interventional wire has crossed the lesion 17:47:11 HR=87 bpm, PJUM=998/96 mmhg, SpO2=94.0 %, Resp=23 B/min, Pain=0, Mesha=10, Weston=2 17:50:27 The previous wire was exchanged for a WIRE, VIPER ADVANCE CORONARY. 17:51:02 Activated Clotting Time Drawn 17:52:10 XW=677 bpm, DXTM=804/104 mmhg, SpO2=98.0 %, Resp=27 B/min, Pain=0, Mesha=10, Weston=2 17:54:07 50 mcg FENTANYL given in lab by Carlos Luqeu RN in Left Antecubital via Peripheral IV. 17:55:41 An CATHETER, CORONARY CLASSIC 1.25MM catheter was inserted into the LAD Prox. 17:57:05 ACT (Normal Range 90-180) = 333 17:57:11 HR=85 bpm, DRKF=203/106 mmhg, SpO2=97.0 %, Resp=0 B/min, Pain=0, Mesha=10, Weston=2 17:59:34 Athrectomy in progress. Multiple passes made. 18:00:09 1 mg VERSED given in lab by Carlos Luque RN in Left Antecubital via Peripheral IV. 18:02:12 HR=86 bpm, XZTW=479/98 mmhg, SpO2=95.0 %, Resp=16 B/min, Pain=0, Mesha=10, Weston=2 18:04:44 Athrectomy device was removed. 18:05:38 A WIRE, BALANCE MIDDLEWEIGHT 190CM 190CM was inserted via Fem Art (right). 18:06:55 A BALLOON, 2.5 X 15MM NC EUPHORA 15MM was inserted over WIRE, VIPER ADVANCE CORONARY via th e LAD Prox. 18:07:11 HR=84 bpm, VSOI=130/94 mmhg, SpO2=95.0 %, Resp=16 B/min, Pain=0, Mesha=10, Weston=2 A BALLOON, 2.5 X 15MM NC EUPHORA 15MM over a WIRE, VIPER ADVANCE CORONARY in the LAD Prox was i nflated 18:07:47 using a 30 RIP INDEFLATOR at 14 rip for 15 sec. A BALLOON, 2.5 X 15MM NC EUPHORA 15MM over a WIRE, VIPER ADVANCE CORONARY in the LAD Prox was i nflated 18:08:18 using a 30 RIP INDEFLATOR at 14 rip for 15 sec. 18:09:35 Balloon Removed. A STENT, 2.75 18 RESOLUTE INTEGRITY RX 2.75 18 was advanced through a EBU 3.5 Z2 GUIDE CATHETER FR 6 over 18:12:08 a WIRE, VIPER ADVANCE CORONARY. 18:12:10 HR=82 bpm, OGWL=398/98 mmhg, SpO2=95.0 %, Resp=19 B/min, Pain=0, Mesha=10, Weston=2 A STENT, 2.75 18 RESOLUTE INTEGRITY RX 2.75 18 was deployed using a 30 RIP INDEFLATOR at 16 rip ospheres 18:12:15 for 18 seconds in the LAD Prox. 18:14:02 Delivery device removed 18:15:44 A BALLOON, 3.0 X 15MM NC EUPHORA 15MM was inserted over WIRE, VIPER ADVANCE CORONARY via th e LAD Prox. 18:16:54 50 mcg FENTANYL given in lab by Carlos Luque RN in Left Antecubital via Peripheral IV. 18:17:13 HR=81 bpm, KMGQ=359/110 mmhg, SpO2=95.0 %, Resp=19 B/min, Pain=0, Mesha=10, Weston=2 A BALLOON, 2.5 X 15MM NC EUPHORA 15MM was inserted over WIRE, BALANCE MIDDLEWEIGHT 190CM 190CM via 18:17:19 the RAMUS. A BALLOON, 3.0 X 15MM NC EUPHORA 15MM over a WIRE, VIPER ADVANCE CORONARY in the LAD Prox was i nflated 18:19:04 using a 30 RIP INDEFLATOR at 10 rip for 10 sec. A BALLOON, 2.5 X 15MM NC EUPHORA 15MM over a WIRE, BALANCE MIDDLEWEIGHT 190CM 190CM in the PROSPER S 18:19:05 was inflated using a 30 RIP INDEFLATOR at 4 rip for 10 sec. 18:20:03 Balloon Removed. 18:20:08 Balloon Removed. 18:22:14 HR=83 bpm, HRCR=702/108 mmhg, SpO2=94.0 %, Resp=21 B/min, Pain=0, Mesha=10, Weston=2 18:23:52 Wire removed 18:24:00 Wire removed 18:24:18 The LCA was injected and visualized at various angles. OMNIPAQUE, 350 MG, 150ML 150ML used . 18:25:56 Catheter was removed A JR 4.0 GUIDE CATHETER FR 6 was advanced over a wire. OMNIPAQUE, 350 MG, 150ML 150ML was used for 18:25:59 injections. 18:26:48 Activated Clotting Time Drawn 18:27:13 HR=85 bpm, MJCG=073/95 mmhg, SpO2=94.0 %, Resp=18 B/min, Pain=0, Mesha=10, Weston=2 A STENT, 3.0 15 RESOLUTE INTEGRITY RX 3.0 15 was advanced through a JR 4.0 GUIDE CATHETER FR 6 over a WIRE, 18:28:47 BALANCE MIDDLEWEIGHT 190CM 190CM. A STENT, 3.0 15 RESOLUTE INTEGRITY RX 3.0 15 was deployed using a 30 RIP INDEFLATOR at 15 atmos pheres for 18:29:47 17 seconds in the RCA Prox. 18:31:06 Delivery device removed A BALLOON, 3.5 X 12MM NC EUPHORA 12MM was inserted over WIRE, BALANCE MIDDLEWEIGHT 190CM 190CM via 18:31:50 the RCA Prox. 18:32:12 HR=87 bpm, ZYSF=100/94 mmhg, SpO2=92.0 %, Resp=19 B/min, Pain=0, Mesha=10, Weston=2 A BALLOON, 3.5 X 12MM NC EUPHORA 12MM over a WIRE, BALANCE MIDDLEWEIGHT 190CM 190CM in the RCA Prox 18:32:20 was inflated using a 30 RIP INDEFLATOR at 12 rip for 10 sec. 18:32:27 ACT (Normal Range 90-180) = 288 18:32:57 The RCA was injected and visualized at various angles. OMNIPAQUE, 350 MG, 150ML 150ML used . 18:33:28 Balloon Removed. 18:33:33 Wire removed 18:33:46 Catheter was removed 18:37:17 HR=81 bpm, QGLU=567/85 mmhg, SpO2=92.0 %, Resp=20 B/min, Pain=0, Mesha=10, Weston=2 18:38:28 Impella removed. 18:41:20 PERCLOSE, PRO GLIDE CLOSER DEVICE FR 6 placement in the Fem Art (left) 18:42:16 HR=82 bpm, JSUR=091/84 mmhg, SpO2=90.0 %, Resp=22 B/min, Pain=0, Mesha=10, Weston=2 18:42:25 50 mg PROTAMINE given in lab by Carlos Luque RN in Left Antecubital via Peripheral IV. 18:43:10 PERCLOSE, PRO GLIDE CLOSER DEVICE FR 6 placement in the Fem Art (left) 18:44:04 An injection in the Fem Art (right) was made through the SHEATH, FR6.5 PRELUDE 11CM FR 6.5. 18:46:10 PERCLOSE, PRO GLIDE CLOSER DEVICE FR 6 placement in the Fem Art (right) 18:47:17 HR=89 bpm, ZUZD=798/80 mmhg, SpO2=89.0 %, Resp=21 B/min, Pain=0, Mesha=10, Weston=2 18:49:13 180 mg BRILLINTA given in lab by Carlos Luque RN in Per mouth via Oral. 18:50:06 Sterile dressing applied to site 18:50:08 No case complications noted. 18:50:09 Cine recording checked. 18:51:13 Bedside Report will be given. 18:51:41 Implantable Device card placed in patient's chart. 18:51:49 A Left Heart Cath was performed. 18:52:18 UI=169 bpm, CEBU=682/78 mmhg, SpO2=89.0 %, Resp=22 B/min, Pain=0, Mesha=10, Weston=2 Assessment: Final Case, HR=85 BPM, Rhythm=Sinus, ZISV=263/78 mmhg, Chest Pain=0, Edema=None, Color=Normal, Skin = Warm, Dry Right Pulses: Matias Ped=3, Femoral=3 18:55:20 Left Pulses: Matias Ped=3, Femoral=3 Neurological: State=Alert, Ox3, CHOPRA Respiration: Resp=22 B/min, SpO2=90 %, O2=0 lpm 18:57:17 HR=81 bpm, NJEU=265/82 mmhg, SpO2=90.0 %, Resp=18 B/min, Pain=0, Mesha=10, Weston=2 19:02:18 HR=83 bpm, EHVL=488/74 mmhg, SpO2=92.0 %, Resp=20 B/min, Pain=0, Mesha=10, Weston=2 19:06:01 Patient moved to stretcher 19:07:16 Vitals capture stopped. End Study - Contrast Media Used In Study Contrast Total Opened (mL) Total Used (mL) Total Wasted (mL) Omnipaque 150 120 30 End Study - Maximum Contrast Load Max Contrast Load (mL) 382.8 End Study - Radiation Exposure Fluoro Time (minutes) 21.9 End Study - Patient Disposition Complications Transferred To Interventional Outcome No Critical Care Bed successful
--- NOTE | 2017-02-19 19:28 | EKG ---
Date Performed: 02/19/2017 Time Performed: 07:46:48 PTAGE: 86 years EKG: Atrial fibrillation. Left axis deviation IV conduction defect Poor R wave progression - can not rule out anteroseptal infarct Lateral ST-T changes are nonspecific Abnormal ECG NO PREVIOUS TRACING DOCTOR: Alex Jones Interpretating Date/Time 02/19/2017 19:24:52
[2017-02-19 20:00] VITALS: BP 139/70; PULSE 83; PULSE 85; RESP 20; TEMP 97.7; O2SAT 94
[2017-02-19 20:09] VITALS: O2SAT 94
--- NOTE | 2017-02-19 21:58 | ECHRPT ---
Indication: MR CAD CONCLUSIONS Moderately dilated left ventricle. Wall thickness is normal. The left ventricular systolic function is severely reduced with an estimated ejection fraction of 25 %. The left atrial size is mildly dilated. Kugu-ej-rdmhisku mitral valve regurgitation. There is mild tricuspid valve regurgitation. There is estimated moderate pulmonary hypertension present (range 50-60 mmHg). BP: 133 / 75 HR: 84 Rhythm: MEASUREMENTS (Male / Female) Normal Values Technical Quality:Fair 2D ECHO LV Diastolic Diameter PLAX 5.9 cm 4.2 - 5.9 / 3.9 - 5.3 cm LV Systolic Diameter PLAX 5.4 cm IVS Diastolic Thickness 1.1 cm 0.6 - 1.0 / 0.6 - 0.9 cm LVPW Diastolic Thickness 0.8 cm 0.6 - 1.0 / 0.6 - 0.9 cm LV Relative Wall Thickness 0.3 RV Internal Dim ED PLAX 2.3 cm M-MODE Aortic Root Diameter MM 2.5 cm LA Systolic Diameter MM 4.3 cm LA Ao Ratio MM 1.7 AV Cusp Separation MM 1.6 cm DOPPLER Mitral E Point Velocity 83.9 cm/s Mitral A Point Velocity 73.5 cm/s Mitral E to A Ratio 1.1 LV E' Lateral Velocity 10.0 cm/s Mitral E to LV E' Lateral Ratio 8.4 LV E' Septal Velocity 11.2 cm/s Mitral E to LV E' Septal Ratio 7.5 TR Peak Velocity 333.0 cm/s TR Peak Gradient 44.4 mmHg FINDINGS LEFT VENTRICLE Moderately dilated left ventricle. Wall thickness is normal. The left ventricular systolic function is severely reduced with an estimated ejection fraction of 25 %. RIGHT VENTRICLE Normal right ventricular size and systolic function. LEFT ATRIUM The left atrial size is mildly dilated. RIGHT ATRIUM The right atrial size is normal. ATRIAL SEPTUM Normal atrial septal thickness without atrial level shunting by limited color doppler interrogation. AORTA The aortic root and proximal ascending aorta are normal in size on limited imaging. MITRAL VALVE Structurally normal mitral valve. Fbnx-vn-edzsckbl mitral valve regurgitation. AORTIC VALVE Trileaflet aortic valve. No aortic valve stenosis or regurgitation. TRICUSPID VALVE Structurally normal tricuspid valve. There is mild tricuspid valve regurgitation. There is estimated moderate pulmonary hypertension present (range 50-60 mmHg). PULMONARY VALVE The pulmonary valve is not well visualized. VESSELS The inferior vena cava is normal in size. PERICARDIUM No pericardial effusion. Hong Bey MD, FACC (Electronically Signed) Final Date:19 February 2017 21:57
[2017-02-19] MEDS ORDERED: ATORVASTATIN 10 MG TAB PO SCH (22:24)
[2017-02-19 23:30] VITALS: PULSE 90
[2017-02-19] MEDS ORDERED: METOPROLOL SUCCINATE 50 MG EXTENDED RELEASE TAB PO SCH (23:36)
[2017-02-20] VITALS (8 sets, daily range): BP systolic 116–148; BP diastolic 68–85; PULSE 61–108; RESP 18–20; TEMP 97.5–98.4; O2SAT 95–99
[2017-02-20 04:45] LABS: AUTOMATED NEUTROPHIL # 5.4 TH/MM3 (1.8-7.7); BASOPHIL % 0.4 % (0.0-2.0); EOSINOPHIL # 0.1 TH/MM3 (0-0.4); EOSINOPHIL % 0.8 % (0.0-4.0); HEMATOCRIT 35.1 % (35.0-46.0); HEMO FLAGS DIFF FINAL; LYMPH % 14.6 % (9.0-44.0); LYMPHOCYTE # 1.1 TH/MM3 (1.0-4.8); MEAN CELL VOLUME 84.1 FL (80.0-100.0); MEAN CORPUSCULAR HEMOGLOBIN 28.4 PG (27.0-34.0); MEAN CORPUSCULAR HGB CONC 33.8 % (32.0-36.0); MONO % 9.9 % (0.0-8.0); NEUT % 74.3 % (16.0-70.0); PLATELET COUNT 175 TH/MM3 (150-450); RED BLOOD COUNT 4.18 MIL/MM3 (4.00-5.30); RED CELL DISTRIBUTION WIDTH 15.9 % (11.6-17.2); WHITE BLOOD COUNT 7.3 TH/MM3 (4.0-11.0)
[2017-02-20 05:15] LABS: BICARBONATE 24.3 MEQ/L (21.0-32.0); POTASSIUM 3.4 MEQ/L (3.5-5.1)
[2017-02-20 05:16] LABS: HDL CHOLESTEROL 52.7 MG/DL (40.0-60.0)
[2017-02-20] MEDS ORDERED: THYROID 60 MG TAB PO SCH (06:00)
[2017-02-20] MEDS: NS 1000P @30 MLS/HR (KVO) IV SCH (07:00)
--- NOTE | 2017-02-20 07:05 | MA ---
cc: PARESH MORRIS DATE 02/19/2017 DATE OF 1930 PROCEDURE PERFORMED 1. Successful PCI to proximal LAD 2. Successful PCI to the right coronary artery 3. Insertion of external heart assist system into heart percutaneous approach. 4. Assistance with cardiac output using Impeller pump continuous. 5. Insertion of ventricular assist device percutaneous including radiological supervision and interpretation arterial only. INDICATIONS Angina with positive stress test, acute on chronic systolic heart failure. High Risk PCI PROCEDURE DESCRIPTION Consent signed. The patient was brought into the cardiac ammunition assembly laborer in a fasting state. The right and left groin were prepped and draped in sterile fashion. Using 1% lidocaine for local anesthesia and a micropuncture kit, an 8-[place] sheath was inserted into the left common femoral artery, then we PreClose with 2 Perclose. IV heparin was given for anticoagulation. A Supracore wire was place in the ascending the aorta and then we dilated the arterial sheath to a 14-[place] sheath to put in an Impeller sheath in the left femoral artery. This was followed by crossing into the ventricle with an AL-1 over a 0.035 wire, then we exchanged the wire for 0.18 wire of the Impella device. This was followed by insertion of the Impella device, fluoroscopy guided into the left ventricle. Positioned of the Impella was confirmed with fluoroscopy. There was a good cardiac output and flow through the Impella device as well confirming good position. Then the left main was engaged with an EBU 3.5 guide. The LAD was wired with the 300 cm long BMW wire with confirmed distal position in the LAD with an over the wire balloon. Angiography to the distal LAD, then we put a CSI wire across the LAD and did several passes of atherectomy with the CSI device. This was followed by wiring of the ramus with a BMW wire for protection, then we predilated the proximal area of the LAD with a 2.50 balloon followed by insertion and deployment of a 2.75 x 15 drug-eluting stent which was postdilated with a noncompliant 3-0 balloon. There was some mild plaque shift into the ramus for which then a 2.5 x 12 balloon was inflated into the ramus with simultaneously with one other balloon while the 3.0 was also inflated in the LAD, better known as a kissing balloon technique. Final angiographic views revealed good stent position and expansion with WEST[place] III flow. The right coronary artery was engaged with a JR-4 6-[place] guide. The vessel was wired with a BMW wire. The lesion was direct stented with a 3.0 x 15 drug-eluting stent followed by post-dilation with a noncompliant 3.5 x 12 balloon to high atmospheres. Final angiographic views revealed good stent position and expansion with WESTON-III flow. After the procedure, the Impella was removed. The access sites were PerClose. The patient tolerated the procedure without complications. Estimated blood loss less than 50 cc. Total contrast used 120 cc. RESULTS Please refer to diagnostic left heart cath report for details of coronary anatomy, as well as of left ventricle. CONCLUSION 1. Successful PCI/AAMIR to proximal LAD. 2. Successful PCI/AAMIR to proximal right coronary right coronary Artery. 3. High-risk PCI patient with angina and severe LV systolic dysfunction. RECOMMENDATIONS The patient will be admitted to the CVICU for post cath care. She will continue dual antiplatelet agent with aspirin and Brilinta and we will continue her home medications, beta-blockers, statins, CHET inhibitors. She will be getting post PCI hydration and consulted to the hospitalist service for medical management. MD AUDIE Dominguez/KADY /7:07 PM /6:47 AM JADEN
[2017-02-20] MEDS ORDERED: ASPIRIN 81 MG CHEW TAB PO SCH (09:00)
[2017-02-20] MEDS ORDERED: CALCIUM/VITAMIN D 250 MG/125 U TAB PO SCH (09:00)
[2017-02-20] MEDS ORDERED: FUROSEMIDE 40 MG/4 ML VIAL IV PUSH ONE (09:00)
[2017-02-20] MEDS ORDERED: TICAGRELOR 90 MG TAB PO SCH (09:00)
[2017-02-20] MEDS ORDERED: FUROSEMIDE 40 MG TAB PO SCH (09:00)
[2017-02-20] MEDS ORDERED: DULAGLUTIDE 1.5 MG SQ SCH (09:00)
--- NOTE | 2017-02-20 09:05 | PD.CARD.PN ---
Subjective Subjective Remarks no overnight events no cardiovascular complaints Objective Medications Current Medications Medications (Trade) Dose Ordered Sig/Zarina Route Start Time Stop Time Status Last Admin (NS 1000 ml Inj) 1,000 ml @ 30 mls/hr Q24H IV 02/19/17 07:00 (Tylenol) 325 mg Q4H PRN PO 02/19/17 19:00 (Aspirin Chew) 81 mg DAILY PO 02/20/17 09:00 (Brilinta) 90 mg BID PO 02/20/17 09:00 (Atropine Inj) 0.5 mg UNSCH PRN IV 02/19/17 19:00 (Zofran Inj) 4 mg Q4H PRN IV 02/19/17 19:00 ([place] Thyroid) 60 mg DAILY@06 PO 02/20/17 06:00 02/20/17 06:03 (Oscal-D 250-125) 500 mg DAILY PO 02/20/17 09:00 (Toprol Xl) 50 mg BID PO 02/19/17 23:36 02/19/17 02:00 (Lasix) 40 mg DAILY PO 02/20/17 09:00 Patient Own Medication PT OWN MED: DULAGLUT... Q7D SQ 02/20/17 09:00 Future Hold (Lipitor) 80 mg HS PO 02/20/17 21:00 UNV (Entresto 49-51 Mg) 1 tab BID PO 02/20/17 09:00 UNV (KCl) 20 meq ONCE ONCE PO 02/20/17 09:00 02/20/17 09:01 UNV (Lasix Inj) 40 mg ONCE ONCE IV PUSH 02/20/17 09:00 02/20/17 09:01 UNV Vital Signs / I&O Vital Signs Date Time Temp Pulse Resp B/P Pulse Ox O2 Delivery O2 Flow Rate FiO2 02/20/17 07:57 98.4 93 20 139/72 96 02/20/17 07:00 97 02/20/17 04:00 96 02/20/17 04:00 98.2 108 20 148/85 97 02/20/17 00:00 97.8 90 20 139/73 98 02/19/17 23:30 90 02/19/17 20:09 94 Nasal Cannula 3.00 02/19/17 20:00 83 02/19/17 20:00 97.7 85 20 139/70 94 02/19/17 09:48 90 Room Air 02/19/17 09:48 97 Room Air I/O 02/19/17 02/19/17 02/19/17 02/20/17 02/20/17 02/20/17 07:00 15:00 23:00 07:00 15:00 23:00 Intake Total 1480 ml Output Total 1305 ml Balance 175 ml Intake Oral 480 ml IV Total 1000 ml Output Urine Total 1305 ml # Bowel Movements 0 Physical Exam GENERAL: Well-nourished, well-developed patient. SKIN: Warm and dry. HEAD: Normocephalic. EYES: No scleral icterus. No injection or drainage. NECK: Supple, trachea midline. No JVD or lymphadenopathy. CARDIOVASCULAR: Regular rate and rhythm without murmurs, gallops, or rubs. RESPIRATORY: Breath sounds equal bilaterally. No accessory muscle use. GASTROINTESTINAL: Abdomen soft, non-tender, nondistended. EXTREMITIES: No cyanosis, or edema. NEUROLOGICAL: Awake, alert, and oriented x 3. Non-focal. Laboratory Laboratory Tests Test 02/20/17 04:35 White Blood Count 7.3 TH/MM3 Red Blood Count 4.18 MIL/MM3 Hemoglobin 11.9 GM/DL Hematocrit 35.1 % Mean Corpuscular Volume 84.1 FL Mean Corpuscular Hemoglobin 28.4 PG Mean Corpuscular Hemoglobin 33.8 % Concent Red Cell Distribution Width 15.9 % Platelet Count 175 TH/MM3 Mean Platelet Volume 8.7 FL Neutrophils (%) (Auto) 74.3 % Lymphocytes (%) (Auto) 14.6 % Monocytes (%) (Auto) 9.9 % Eosinophils (%) (Auto) 0.8 % Basophils (%) (Auto) 0.4 % Neutrophils # (Auto) 5.4 TH/MM3 Lymphocytes # (Auto) 1.1 TH/MM3 Monocytes # (Auto) 0.7 TH/MM3 Eosinophils # (Auto) 0.1 TH/MM3 Basophils # (Auto) 0.0 TH/MM3 CBC Comment DIFF FINAL Differential Comment Sodium Level 143 MEQ/L Potassium Level 3.4 MEQ/L Chloride Level 109 MEQ/L Carbon Dioxide Level 24.3 MEQ/L Anion Gap 10 MEQ/L Blood Urea Nitrogen 17 MG/DL Creatinine 0.86 MG/DL Estimat Glomerular Filtration 63 ML/MIN Rate Random Glucose 157 MG/DL Calcium Level 8.8 MG/DL Triglycerides Level 102 MG/DL Cholesterol Level 105 MG/DL LDL Cholesterol 32 MG/DL HDL Cholesterol 52.7 MG/DL Cholesterol/HDL Ratio 1.99 RATIO Imaging Last Impressions Carotid Artery Ultrasound 02/19/17 0000 Signed Impressions: Service Date/Time: Sunday, February 19, 2017 00:03 - CONCLUSION: Eccentric moderate atherosclerotic disease without any two-dimensional stenosis. Brett Henry MD Assessment and Plan Problem List: (1) CAD (coronary artery disease) Assessment and Plan: 86 y/o F presenting with UA and positive stress test, 2 vessel CAD on [facility], severe LV systolic dysfunction. She underwent successful High Risk PCI to LAD and RCA, Impella support. No CV event this AM, ambulating without difficulty. She has hx of CVA, but having paroxysmal afib on monitor with adequate ventricular response. CHADS2 >6, she will need OAC in addition to DAPT. Risk benefits discussed and she is willing to take triple therapy. As regards to LV dysfunction + LBBB cont Coreg, Entresto, Statin and Lasix, we will re-evaluate LV function as opd for possible APPLIED BIOLOGY PROFESSOR-D placement. In the meantime recommend Wearable External Defibrillator before discharge. Recommendations: 1. Start Entresto 2. D/C Lopressor start Coreg 6.25mg PO BID 3. Lasix 40mg IV x1 4. Replete K+ 5. Start Xarelto 6. Cont ASA and Brillinta, 7. Increase Lipitor to 80mg PO daily 8. Life Vest upon discharge 9. Encourage ambulation and incentive spirometry 10. Follow up with me in 1 week Patient stable from CV standpoint to be discharge home today. (2) Unstable angina (3) Atrial fibrillation (4) Diabetes mellitus (5) HTN (hypertension) (6) Acute on chronic systolic heart failure Problem Qualifiers (1) CAD (coronary artery disease): (2) Atrial fibrillation: Qualified Code: I48.0 - Paroxysmal atrial fibrillation (3) Diabetes mellitus: (4) HTN (hypertension): Qualified Code: I10 - Essential hypertension Antonio Brooks MD Feb 20, 2017 09:05
[2017-02-20] MEDS ORDERED: POTASSIUM CHLORIDE 20 MEQ CONTROLLED RELEASE TAB PO ONE (09:45)
[2017-02-20] MEDS ORDERED: SACUBITRIL/VALSARTAN 49 MG-51 MG TAB PO SCH (09:45)
[2017-02-20] MEDS ORDERED: SPIRONOLACTONE 25 MG TAB PO SCH (09:45)
[2017-02-20] MEDS ORDERED: CARVEDILOL 6.25 MG TAB PO SCH (09:45)
[2017-02-20] MEDS ORDERED: RIVAROXABAN 20 MG TAB PO SCH (09:45)
--- NOTE | 2017-02-20 11:59 | PD.PN.STU ---
Subjective Remarks [facility] [place] Sammi Light M[facility]. [facility] Dr. Antonio Moon M.D. Primary Care Physician Dr. Terrell Miller.OYarely Admission Diagnosis Unstable Angina, Progressive SOB Diagnoses: Chief Complaint: Progressive SOB, fatigue Travel History International Travel<30 Days: No Contact w/Intl Traveler <30 Da: No Traveled to Known Affected Are: No History of Present Illness Patient is an 86 year old woman with hx of diabetes, hypertension, progressive SOB, fatigue, paroxysmal atrial fibrillation, and CHF with EF 25-30%. In October of 2016 she experienced 4 days of progressive SOB and fatigue, for which she presented to [facility] and diagnosed with CHF. She was discharged , and returned in January with CHF exacerbation and pneumonia, requiring ICU stay for 4 days. She was discharged home and followed up with Dr. Bledsoe, who scheduled a nuclear stress test for 3 weeks post discharge. Due to worsening symptoms and Dr. Bledsoe [place] out of the [place], the patient requested a sooner follow up and saw Dr. Antonio Moon. Nuclear stress testing showed evidence of significant coronary blood floor impairment. She was admitted under Dr. Moon and underwent successful PCI with DEL x2 placement in the proximal LAD and RCA with Impella support. Dr. Moon has requested one week follow up with use of a wearable external defibrillator until such time. Patient states that her dyspnea is worse compared to yesterday. Otherwise, no complaints. Review of Systems Constitutional: COMPLAINS OF: Fatigue Respiratory: COMPLAINS OF: SOB, occasional cough Cardiovascular: COMPLAINS OF: Dyspnea on Exertion and while sleeping Gastrointestinal: Except as stated in HPI: all other systems reviewed are Neg Past Family Social History Past Medical History Type 2 diabetes Hypertension Osteoporosis Hypothyroidism CVA 8 years ago, right sided weakness, residual handwriting impairment only deficit Congestive heart failure EF 25-30% Atrial Fibrillation CAD MVP with mild regurge LBBB CKD Stage III Past Surgical History Hysterectomy Bilateral Salpingo oophorectomy Allergies: SULFA Family History Mother- passed at 65, brain tumor Father- Passed at 56, Diabetic complications including heart failure Social History 20 pack/week hx smoking, age [age] Once monthly alcohol use Physical Exam GENERAL: Well-nourished, well-developed patient in NAD, lying in bed comfortably. Easily sits at side of bed without assistance SKIN: Warm and dry. No rash. HEENT: Normocephalic. Atraumatic. Pupils equal and round. No scleral icterus. No injection or drainage. Mucous membranes pink and moist. NECK: Supple. Trachea midline. CARDIOVASCULAR: Bradycardic. No murmur appreciated. RESPIRATORY: No accessory muscle use. decreased sounds at the bases but no crackles appreciated. Breath sounds equal bilaterally. GASTROINTESTINAL: Abdomen soft, non-tender, nondistended. Normoactive bowel sounds x4. MUSCULOSKELETAL: No obvious deformities. Minimal edema. Bilateral groin PCI insertion sites healing well NEUROLOGICAL: Awake and alert. No obvious cranial nerve deficits. Motor grossly within normal limits. Normal speech. PSYCHIATRIC: Appropriate mood and affect. Current Medications Medications (Trade) Dose Ordered Sig/Zarina Route PRN Reason Start Time Stop Time Status Last Admin Dose Admin Sodium Chloride (NS 1000 ml Inj) 1,000 ml @ 30 mls/hr Q24H IV 02/19/17 07:00 Acetaminophen (Tylenol) 325 mg Q4H PRN PO PAIN SCALE 1 TO 2 02/19/17 19:00 Aspirin (Aspirin Chew) 81 mg DAILY PO 02/20/17 09:00 02/20/17 08:51 Ticagrelor (Brilinta) 90 mg BID PO 02/20/17 09:00 02/20/17 08:51 Atropine Sulfate (Atropine Inj) 0.5 mg UNSCH PRN IV VAGAL REPONSE 02/19/17 19:00 Ondansetron HCl (Zofran Inj) 4 mg Q4H PRN IV NAUSEA 02/19/17 19:00 Thyroid ([place] Thyroid) 60 mg DAILY@06 PO 02/20/17 06:00 02/20/17 06:03 Calcium/Vitamin D (Oscal-D 250-125) 500 mg DAILY PO 02/20/17 09:00 02/20/17 08:52 Furosemide (Lasix) 40 mg DAILY PO 02/20/17 09:00 Patient Own Medication PT OWN MED: DULAGLUT... Q7D SQ 02/20/17 09:00 Hold Atorvastatin Calcium (Lipitor) 80 mg HS PO 02/20/17 21:00 Sacubitril/ Valsartan (Entresto 49-51 Mg) 1 tab BID PO 02/20/17 09:45 02/20/17 10:25 Spironolactone (Aldactone) 25 mg DAILY PO 02/20/17 09:45 02/20/17 09:45 Carvedilol (Coreg) 6.25 mg Q12HR PO 02/20/17 09:45 02/20/17 09:45 Rivaroxaban (Xarelto) 20 mg DAILY PO 02/20/17 09:45 02/20/17 09:45 Laboratory Tests Test 02/19/17 02/20/17 07:20 04:35 White Blood Count 5.7 TH/MM3 7.3 TH/MM3 (4.0-11.0) (4.0-11.0) Red Blood Count 4.21 MIL/MM3 4.18 MIL/MM3 (4.00-5.30) (4.00-5.30) Hemoglobin 12.2 GM/DL 11.9 GM/DL (11.6-15.3) (11.6-15.3) Hematocrit 35.6 % 35.1 % (35.0-46.0) (35.0-46.0) Mean Corpuscular Volume 84.5 FL 84.1 FL (80.0-100.0) (80.0-100.0) Mean Corpuscular Hemoglobin 29.0 PG 28.4 PG (27.0-34.0) (27.0-34.0) Mean Corpuscular Hemoglobin 34.3 % 33.8 % Concent (32.0-36.0) (32.0-36.0) Red Cell Distribution Width 16.5 % 15.9 % (11.6-17.2) (11.6-17.2) Platelet Count 182 TH/MM3 175 TH/MM3 (150-450) (150-450) Mean Platelet Volume 9.1 FL 8.7 FL (7.0-11.0) (7.0-11.0) Neutrophils (%) (Auto) 55.4 % 74.3 % (16.0-70.0) (16.0-70.0) Lymphocytes (%) (Auto) 26.9 % 14.6 % (9.0-44.0) (9.0-44.0) Monocytes (%) (Auto) 11.4 % 9.9 % (0.0-8.0) (0.0-8.0) Eosinophils (%) (Auto) 5.6 % (0.0-4.0) 0.8 % (0.0-4.0) Basophils (%) (Auto) 0.7 % (0.0-2.0) 0.4 % (0.0-2.0) Neutrophils # (Auto) 3.1 TH/MM3 5.4 TH/MM3 (1.8-7.7) (1.8-7.7) Lymphocytes # (Auto) 1.5 TH/MM3 1.1 TH/MM3 (1.0-4.8) (1.0-4.8) Monocytes # (Auto) 0.6 TH/MM3 0.7 TH/MM3 (0-0.9) (0-0.9) Eosinophils # (Auto) 0.3 TH/MM3 0.1 TH/MM3 (0-0.4) (0-0.4) Basophils # (Auto) 0.0 TH/MM3 0.0 TH/MM3 (0-0.2) (0-0.2) CBC Comment DIFF FINAL DIFF FINAL Differential Comment Prothrombin Time 11.2 SEC (9.8-11.6) Prothromb Time International 1.0 RATIO Ratio Activated Partial 25.7 SEC Thromboplast Time (24.3-30.1) Sodium Level 142 MEQ/L 143 MEQ/L (136-145) (136-145) Potassium Level 3.6 MEQ/L 3.4 MEQ/L (3.5-5.1) (3.5-5.1) Chloride Level 106 MEQ/L 109 MEQ/L (98-107) (98-107) Carbon Dioxide Level 27.7 MEQ/L 24.3 MEQ/L (21.0-32.0) (21.0-32.0) Anion Gap 8 MEQ/L (5-15) 10 MEQ/L (5-15) Blood Urea Nitrogen 23 MG/DL (7-18) 17 MG/DL (7-18) Creatinine 0.98 MG/DL 0.86 MG/DL (0.50-1.00) (0.50-1.00) Estimat Glomerular Filtration 54 ML/MIN (>89) 63 ML/MIN (>89) Rate Random Glucose 139 MG/DL 157 MG/DL (74-106) (74-106) Calcium Level 9.3 MG/DL 8.8 MG/DL (8.5-10.1) (8.5-10.1) Triglycerides Level 102 MG/DL (42-150) Cholesterol Level 105 MG/DL (120-200) LDL Cholesterol 32 MG/DL (0-99) HDL Cholesterol 52.7 MG/DL (40.0-60.0) Cholesterol/HDL Ratio 1.99 RATIO Last 72 hours Impressions Carotid Artery Ultrasound 02/19/17 0000 Signed Impressions: Service Date/Time: Sunday, February 19, 2017 00:03 - CONCLUSION: Eccentric moderate atherosclerotic disease without any two-dimensional stenosis. Brett Henry MD Vital Signs Date Time Temp Pulse Resp B/P Pulse Ox O2 Delivery O2 Flow Rate FiO2 02/20/17 11:04 61 02/20/17 11:04 97.5 79 18 133/68 99 02/20/17 09:01 95 21 02/20/17 07:57 98.4 93 20 139/72 96 02/20/17 07:00 97 02/20/17 04:00 96 02/20/17 04:00 98.2 108 20 148/85 97 02/20/17 00:00 97.8 90 20 139/73 98 02/19/17 23:30 90 02/19/17 20:09 94 Nasal Cannula 3.00 02/19/17 20:00 83 02/19/17 20:00 97.7 85 20 139/70 94 Assessment and Plan Assessment and Plan Objective Vitals Vital Signs Date Time Temp Pulse Resp B/P Pulse Ox O2 Delivery O2 Flow Rate FiO2 02/20/17 11:04 61 02/20/17 11:04 97.5 79 18 133/68 99 02/20/17 09:01 95 21 02/20/17 07:57 98.4 93 20 139/72 96 02/20/17 07:00 97 02/20/17 04:00 96 02/20/17 04:00 98.2 108 20 148/85 97 02/20/17 00:00 97.8 90 20 139/73 98 02/19/17 23:30 90 02/19/17 20:09 94 Nasal Cannula 3.00 02/19/17 20:00 83 02/19/17 20:00 97.7 85 20 139/70 94 I/O 02/19/17 02/19/17 02/19/17 02/20/17 02/20/17 02/20/17 07:00 15:00 23:00 07:00 15:00 23:00 Intake Total 1480 ml Output Total 1305 ml Balance 175 ml Intake Oral 480 ml IV Total 1000 ml Output Urine Total 1305 ml # Bowel Movements 0 Result Diagram: 02/20/17 0435 02/20/17 0435 Hazel Harman M3 Feb 20, 2017 11:59
--- NOTE | 2017-02-20 12:18 | PD.CONS ---
HPI Service [facility] Consult Requested By Dr. Moon Reason for Consult Medical management Primary Care Physician Terrell Barrios, Diagnoses: History of Present Illness 86-year-old female with a medical history significant for CHF, atrial fibrillation, CVA, hypertension, diabetes was admitted for heart catheterization after abnormal stress test at the therapeutic recreation assistant office. The patient was recently diagnosed with heart failure with an EF of 25-30% in January 2017. She has been on Entresto and diuretics but has been having worsening shortness of breath. A stress test was done by Dr. Moon office which showed ischemia, and therefore the patient was admitted for heart catheterization. She is seen after the procedure. She was found to have two-vessel disease and underwent successful High Risk PCI to LAD and RCA, Impella support. She reports feeling much better. She denies chest pain. States she does get short of breath with activities but overall admits she is feeling much better. She is anxious to go home. Review of Systems Constitutional: DENIES: Fever, Chills Respiratory: COMPLAINS OF: Shortness of breath Cardiovascular: COMPLAINS OF: Dyspnea on Exertion, DENIES: Chest pain Gastrointestinal: DENIES: Abdominal pain, Nausea, Vomiting Integumentary: DENIES: Rash Except as stated in HPI: all other systems reviewed are Neg Past Family Social History Allergies: Coded Allergies: Sulfa (Unverified Allergy, Unknown, UNKNOWN - REACTION OCCURED 50 YRS AGO , 01/27/15) Past Medical History CHF, atrial fibrillation, CVA, hypertension, diabetes, chronic kidney disease Past Surgical History Hysterectomy Reported Medications Aspir-81 (Aspirin) 81 Mg Tabdr 81 Mg PO DAILY Trulicity Inj (Dulaglutide Inj) 1.5 Mg/0.5 Ml Pen 1.5 Mg SQ Q7D [place] 3 1000 mg ([place]-3 Fatty Acids) 1 Cap Cap 1,000 Mg PO DAILY Metformin ER (Metformin HCl) 1,000 Mg Junaid 1,000 Mg PO DAILY With evening meal Lasix (Furosemide) 40 Mg Tab 40 Mg PO DAILY Entresto (Sacubitril-Valsartan) 49-51 Mg Tab 1 Tab PO DAILY Calcium 500 +D (Calcium Carbonate-Cholecalciferol) 500-400 Mg-Unit Tab 1 Tab PO DAILY [place] Thyroid (Thyroid) 60 Mg Tab 60 Mg PO DAILY Family History Father in his 50s from complications of heart failure and diabetes. Social History Patient smoke 1 pack per day for about 20 years. She quit about 40 years ago. Admits to occasional alcohol. Physical Exam Vital Signs Vital Signs Date Time Temp Pulse Resp B/P Pulse Ox O2 Delivery O2 Flow Rate FiO2 02/20/17 11:04 61 02/20/17 11:04 97.5 79 18 133/68 99 02/20/17 09:01 95 21 02/20/17 07:57 98.4 93 20 139/72 96 02/20/17 07:00 97 02/20/17 04:00 96 02/20/17 04:00 98.2 108 20 148/85 97 02/20/17 00:00 97.8 90 20 139/73 98 02/19/17 23:30 90 02/19/17 20:09 94 Nasal Cannula 3.00 02/19/17 20:00 83 02/19/17 20:00 97.7 85 20 139/70 94 Physical Exam GENERAL: Elderly female in no apparent distress. SKIN: No rashes, ecchymoses or lesions. Cool and dry. HEAD: Atraumatic. Normocephalic. No temporal or scalp tenderness. EYES: Pupils equal round and reactive. Extraocular motions intact. No scleral icterus. No injection or drainage. ENT: Nose without bleeding, purulent drainage or septal hematoma. Throat without erythema, tonsillar hypertrophy or exudate. Uvula midline. Airway patent. NECK: Trachea midline. No JVD or lymphadenopathy. Supple, nontender, no meningeal signs. CARDIOVASCULAR: Regular rate and rhythm without murmurs, gallops, or rubs. RESPIRATORY: Clear to auscultation. Breath sounds equal bilaterally. No wheezes , rales, or rhonchi. GASTROINTESTINAL: Abdomen soft, non-tender, nondistended. No hepato-splenomegaly , or palpable masses. No guarding. MUSCULOSKELETAL: Extremities without clubbing, cyanosis, or edema. No joint tenderness, effusion, or edema noted. No calf tenderness. Negative Homans sign bilaterally. NEUROLOGICAL: Awake and alert. Cranial nerves II through XII intact. Motor and sensory grossly within normal limits. Five out of 5 muscle strength in all muscle groups. Normal speech. Laboratory Laboratory Tests Test 02/20/17 04:35 White Blood Count 7.3 Red Blood Count 4.18 Hemoglobin 11.9 Hematocrit 35.1 Mean Corpuscular Volume 84.1 Mean Corpuscular Hemoglobin 28.4 Mean Corpuscular Hemoglobin 33.8 Concent Red Cell Distribution Width 15.9 Platelet Count 175 Mean Platelet Volume 8.7 Neutrophils (%) (Auto) 74.3 Lymphocytes (%) (Auto) 14.6 Monocytes (%) (Auto) 9.9 Eosinophils (%) (Auto) 0.8 Basophils (%) (Auto) 0.4 Neutrophils # (Auto) 5.4 Lymphocytes # (Auto) 1.1 Monocytes # (Auto) 0.7 Eosinophils # (Auto) 0.1 Basophils # (Auto) 0.0 CBC Comment DIFF FINAL Differential Comment Sodium Level 143 Potassium Level 3.4 Chloride Level 109 Carbon Dioxide Level 24.3 Anion Gap 10 Blood Urea Nitrogen 17 Creatinine 0.86 Estimat Glomerular Filtration 63 Rate Random Glucose 157 Calcium Level 8.8 Triglycerides Level 102 Cholesterol Level 105 LDL Cholesterol 32 HDL Cholesterol 52.7 Cholesterol/HDL Ratio 1.99 Result Diagram: 02/20/17 0435 02/20/17 0435 Imaging Last Impressions Carotid Artery Ultrasound 02/19/17 0000 Signed Impressions: Service Date/Time: Sunday, February 19, 2017 00:03 - CONCLUSION: Eccentric moderate atherosclerotic disease without any two-dimensional stenosis. Brett Henry MD Assessment and Plan Problem List: (1) CAD (coronary artery disease) ICD Code: I25.10 Status: Acute Plan: Patient is status post left heart catheterization which showed two- vessel disease. Status post high risk PCI to LAD and RCA, and Impella support Discharge on Coreg, Brillinta, aspirin, Lipitor Entresto and Lifevest on discharge. - Follow up next week outpatient with cardiology (2) Unstable angina ICD Code: I20.0 Status: Acute Plan: See above (3) Atrial fibrillation ICD Code: I48.91 Status: Acute Plan: Rate controlled, on Xarelto per cardiology recommendations. (4) Diabetes mellitus ICD Code: E11.9 Status: Acute Plan: Diabetic diet. Resume home medications upon discharge. (5) HTN (hypertension) ICD Code: I10 Status: Acute Plan: Controlled. Continue heart medications as above. (6) Systolic CHF ICD Code: I50.20 Status: Acute Plan: LV EF of 25% Patient to continue on Entresto, Coreg, spironolactone, Lasix. Follow-up with cardiology next week. Assessment and Plan Monitor patient for a few hours, awaiting life vest application. Plan to discharge later today. Problem Qualifiers (1) CAD (coronary artery disease): (2) Atrial fibrillation: Qualified Code: I48.0 - Paroxysmal atrial fibrillation (3) Diabetes mellitus: (4) HTN (hypertension): Qualified Code: I10 - Essential hypertension Sammi Light MD Feb 20, 2017 12:18
[2017-02-20] MEDS ORDERED: ATOR1TAB18 PO (13:55)
[2017-02-20] MEDS ORDERED: BRIL90TA PO (13:55)
[2017-02-20] MEDS ORDERED: XARE20TA PO (13:55)
[2017-02-20] MEDS ORDERED: CARV6.25 PO (13:55)
[2017-02-20] MEDS ORDERED: SPIR25 PO (13:55)
--- NOTE | 2017-02-20 17:19 | HHI.DCPOC ---
Discharge Care Plan Diagnosis: (1) Acute on chronic systolic heart failure (2) CAD (coronary artery disease) (3) Atrial fibrillation (4) Diabetes mellitus (5) HTN (hypertension) Goals to Promote Your Health * To prevent worsening of your condition and complications * To maintain your health at the optimal level Directions to Meet Your Goals Take your medications as prescribed Follow your dietary instruction Follow activity as directed Keep your appointments as scheduled Take your immunizations and boosters as scheduled If your symptoms worsen call your PCP, if no PCP go to Urgent Care Center or Emergency Room Smoking is Dangerous to Your Health. Avoid second hand smoke Call the 24-hour hour crisis hotline for domestic abuse at Sammi Light MD Feb 20, 2017 17:19
[2017-02-20] MEDS ORDERED: ATORVASTATIN 80 MG TAB PO SCH (21:00)
== END 2017-02-20 18:45 | disposition home or self-care (01) | DRG 216 ==
LOC: HDOC 06:27 → HDIC 06:28 → HSDI 18:58 → HDOC 18:58 → HCVR 19:15 → HCIS 02-20 09:33
PROVIDERS: ADMIT Family Medicine; ATTEND Family Medicine
PROC: 5A0221D Assistance with Cardiac Output using Impeller Pump, Continuous (ICD-10-PCS; 2017-02-19)
PROC: 027135Z Dilation of Coronary Artery, Two Arteries with Two Drug-eluting Intraluminal Devices, Percutaneous Approach (ICD-10-PCS; 2017-02-19)
PROC: 02C03ZZ Extirpation of Matter from Coronary Artery, One Artery, Percutaneous Approach (ICD-10-PCS; 2017-02-19)
PROC: B2111ZZ Fluoroscopy of Multiple Coronary Arteries using Low Osmolar Contrast (ICD-10-PCS; 2017-02-19)
PROC: B2151ZZ Fluoroscopy of Left Heart using Low Osmolar Contrast (ICD-10-PCS; 2017-02-19)
PROC: B41F1ZZ Fluoroscopy of Right Lower Extremity Arteries using Low Osmolar Contrast (ICD-10-PCS; 2017-02-19)
PROC: 4A023N7 Measurement of Cardiac Sampling and Pressure, Left Heart, Percutaneous Approach (ICD-10-PCS; 2017-02-19)
PROC: B2111ZZ Fluoroscopy of Multiple Coronary Arteries using Low Osmolar Contrast (ICD-10-PCS; 2017-02-19)
PROC: 4A023N7 Measurement of Cardiac Sampling and Pressure, Left Heart, Percutaneous Approach (ICD-10-PCS; principal; 2017-02-19 08:45)
DX: I25.110 Atherosclerotic heart disease of native coronary artery with unstable angina pectoris (principal); I50.23 Acute on chronic systolic (congestive) heart failure; E11.22 Type 2 diabetes mellitus with diabetic chronic kidney disease; E11.42 Type 2 diabetes mellitus with diabetic polyneuropathy; I13.0 Hypertensive heart and chronic kidney disease with heart failure and stage 1 through stage 4 chronic kidney disease, or unspecified chronic kidney disease; I69.351 Hemiplegia and hemiparesis following cerebral infarction affecting right dominant side; I48.0 Paroxysmal atrial fibrillation; I44.7 Left bundle-branch block, unspecified; I25.5 Ischemic cardiomyopathy; N18.3 Chronic kidney disease, stage 3 (moderate); E78.5 Hyperlipidemia, unspecified; E03.9 Hypothyroidism, unspecified; I08.1 Rheumatic disorders of both mitral and tricuspid valves; E11.319 Type 2 diabetes mellitus with unspecified diabetic retinopathy without macular edema; M81.0 Age-related osteoporosis without current pathological fracture; Z79.84 Long term (current) use of oral hypoglycemic drugs; Z87.891 Personal history of nicotine dependence
CPT/HCPCS: 33990; 80048; 80061; 85002; 85025; 85610; 85730; 92920; 92933; 92934; 93005; 93306; 93454; 93458; 93880; 94150; C1714; C1725; C1760; C1769; C1874; C1887; C1893; G0269; J1644; J1940; J2250; J2720; J3010; J7030; Q9967

== ENCOUNTER 2017-02-22 17:52 | Emergency (ER) | payer OTHER ==
[~2017-02-22] VITALS: Ht 157.5 cm; Wt 68.0 kg
[~2017-02-22 17:52] MED LIST changes: -AMLO5TAB22 PO; +ASPI81TA81 PO; +ATOR1TAB18 PO; -ATOR20TA PO; -BIOTCAP PO; +BRIL90TA PO; +CALC1TAB12 PO; -CALC500T21 PO; +CARV6.25 PO; -CLOP75TA PO; +DULA0.5I SQ; -FISH1000 PO; +FURO1TAB60 PO; -GLIP2.5T2 PO; -JANU100T PO; -LISI-363 PO; +METF-382 PO; -METF500 PO; -METO50TA11 PO; +OMEG100010 PO; +SACU1TAB7 PO; +SPIR25 PO; +XARE20TA PO
--- NOTE | 2017-02-22 17:57 | PD ---
Physical Exam Time Seen by Provider: 17:57 Narrative 86 y/o female here with rectal/nasal bleeding for one day. Recently started xarelto. Vital signs reviewed. Seen at triage desk. Awaiting bed placement. [facility] Medical Record Reviewed: Yes Supervised Visit with ADRIANO: Ricardo Osorio Feb 22, 2017 17:57
[2017-02-22 17:59] VITALS: BP 152/72; PULSE 95; RESP 20; TEMP 97.7; O2SAT 97
[2017-02-22] MEDS ORDERED: SODIUM CHLORIDE 0.9% FLUSH 10 ML FLUSH IVF PRN (20:45)
[2017-02-22 20:55] VITALS: BP 148/66; PULSE 87; RESP 18; O2SAT 96
--- NOTE | 2017-02-22 21:27 | PD ---
HPI Chief Complaint: Bleeding Time Seen by Provider: 21:27 Travel History International Travel<30 days: No Contact w/Intl Traveler<30days: No Traveled to known affect area: No History of Present Illness HPI 86-year-old female with history of CVA, CAD, diabetes, recent stent placement eye doctor Red, on xarelto, Brilinta, and aspirin presents to emergency department today for evaluation of an episode of rectal bleeding and epistaxis. Patient had a stent placement on Sunday, 3 days ago. She states that she isn' t following all discharge instructions. Today she noticed when she had a bowel movement there was adam red blood. Denies any pain. No nausea or vomiting. No shortness of breath. No sensation of lightheadedness or dizziness. Patient also had an episode of epistaxis this afternoon that resolved on its own. She states that she was advised by Dr. Moon to come emergent department for further evaluation. Currently the patient is not bleeding and she has no symptoms. 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 HEPATIC CYST PARASITIC INFECTION / CHOLECYSTECTOMY ) AICD: No Body Medical Devices: N/A Cardiac Surgery: No Ear Surgery: No Endocrine Surgery: No Eye Surgery: No Genitourinary Surgery: No Gynecologic Surgery: Yes (SAUL, BSO) Joint Replacement: No Neurologic Surgery: No Oral Surgery: Yes (CROWNS) Pacemaker: No Thoracic Surgery: No Social History Alcohol Use: No Tobacco Use: Yes Substance Use: No Allergies-Medications (Allergen,Severity, Reaction): Coded Allergies: Sulfa (Unverified Allergy, Unknown, UNKNOWN - REACTION OCCURED 50 YRS AGO , 02/22/17) Reported Meds & Prescriptions Reported Meds & Active Scripts Active Brilinta (Ticagrelor) 90 Mg Tab 90 Mg PO BID Aldactone (Spironolactone) 25 Mg Tab 25 Mg PO DAILY Xarelto (Rivaroxaban) 20 Mg Tab 20 Mg PO DAILY Coreg (Carvedilol) 6.25 Mg Tab 6.25 Mg PO Q12HR Atorvastatin (Atorvastatin Calcium) 80 Mg Tab 80 Mg PO HS Reported Aspir-81 (Aspirin) 81 Mg Tabdr 81 Mg PO DAILY Trulicity Inj (Dulaglutide Inj) 1.5 Mg/0.5 Ml Pen 1.5 Mg SQ Q7D Glasco 3 1000 mg (Glasco-3 Fatty Acids) 1 Cap Cap 1,000 Mg PO DAILY Metformin ER (Metformin HCl) 1,000 Mg Junaid 1,000 Mg PO DAILY With evening meal Lasix (Furosemide) 40 Mg Tab 40 Mg PO DAILY Entresto (Sacubitril-Valsartan) 49-51 Mg Tab 1 Tab PO DAILY Calcium 500 +D (Calcium Carbonate-Cholecalciferol) 500-400 Mg-Unit Tab 1 Tab PO DAILY [place] Thyroid (Thyroid) 60 Mg Tab 60 Mg PO DAILY Review of Systems Except as stated in HPI: all other systems reviewed are Neg Physical Exam Narrative GENERAL: Well-nourished female patient, in no acute distress SKIN: Focused skin assessment warm/dry. HEAD: Atraumatic. Normocephalic. EYES: Pupils equal and round. No scleral icterus. No injection or drainage. ENT: No nasal bleeding or discharge. Mucous membranes pink and moist. NECK: Trachea midline. No JVD. CARDIOVASCULAR: Regular rate and rhythm. Patient has life pack in place. RESPIRATORY: No accessory muscle use. Clear to auscultation. Breath sounds equal bilaterally. GASTROINTESTINAL: Abdomen soft, non-tender, nondistended. Hepatic and splenic margins not palpable. Large area of resolving ecchymosis across the suprapubic area. Area is nontender to palpate. It is soft. MUSCULOSKELETAL: No obvious deformities. No clubbing. No cyanosis. No edema. RECTAL EXAM: No masses or tenderness, stool is dark brown. NEUROLOGICAL: Awake and alert. No obvious cranial nerve deficits. Motor grossly within normal limits. Normal speech. PSYCHIATRIC: Appropriate mood and affect; insight and judgment normal. Data Data Last Documented VS Vital Signs Date Time Temp Pulse Resp B/P Pulse Ox O2 Delivery O2 Flow Rate FiO2 02/22/17 20:56 96 Room Air 02/22/17 20:55 87 18 148/66 02/22/17 17:59 97.7 Orders Basic Metabolic Panel (Bmp) (02/22/17 20:41) Complete Blood Count With Diff (02/22/17 20:41) Prothrombin Time / Inr (Pt) (02/22/17 20:41) Act Partial Throm Time (Ptt) (02/22/17 20:41) Ecg Monitoring (02/22/17 20:41) Bilateral Bp Monitoring (02/22/17 20:41) Iv Access Insert/Monitor (02/22/17 20:41) Oximetry (02/22/17 20:41) Oxygen Administration (02/22/17 20:41) Sodium Chloride 0.9% Flush (Ns Flush) (02/22/17 20:45) Labs Laboratory Tests Test 02/22/17 20:55 White Blood Count 7.7 TH/MM3 Red Blood Count 4.47 MIL/MM3 Hemoglobin 12.7 GM/DL Hematocrit 37.9 % Mean Corpuscular Volume 84.9 FL Mean Corpuscular Hemoglobin 28.4 PG Mean Corpuscular Hemoglobin 33.4 % Concent Red Cell Distribution Width 16.2 % Platelet Count 210 TH/MM3 Mean Platelet Volume 9.2 FL Neutrophils (%) (Auto) 58.0 % Lymphocytes (%) (Auto) 23.1 % Monocytes (%) (Auto) 10.2 % Eosinophils (%) (Auto) 8.1 % Basophils (%) (Auto) 0.6 % Neutrophils # (Auto) 4.5 TH/MM3 Lymphocytes # (Auto) 1.8 TH/MM3 Monocytes # (Auto) 0.8 TH/MM3 Eosinophils # (Auto) 0.6 TH/MM3 Basophils # (Auto) 0.0 TH/MM3 CBC Comment DIFF FINAL Differential Comment Prothrombin Time 15.3 SEC Prothromb Time International 1.4 RATIO Ratio Activated Partial 36.1 SEC Thromboplast Time Sodium Level 139 MEQ/L Potassium Level 3.5 MEQ/L Chloride Level 104 MEQ/L Carbon Dioxide Level 25.9 MEQ/L Anion Gap 9 MEQ/L Blood Urea Nitrogen 28 MG/DL Creatinine 1.17 MG/DL Estimat Glomerular Filtration 44 ML/MIN Rate Random Glucose 137 MG/DL Calcium Level 10.3 MG/DL MDM Medical Decision Making Medical Screen Exam Complete: Yes Emergency Medical Condition: Yes Medical Record Reviewed: Yes Differential Diagnosis GI bleed versus hypercoagulopathy versus anemia versus normal exam Narrative Course 86-year-old female presents to emergency department for evaluation. Patient currently has no symptoms. she has Hemoccult-positive. She is not having any epistaxis nor does she have any evidence of this. Laboratory Tests Test 02/22/17 20:55 White Blood Count 7.7 TH/MM3 Red Blood Count 4.47 MIL/MM3 Hemoglobin 12.7 GM/DL Hematocrit 37.9 % Mean Corpuscular Volume 84.9 FL Mean Corpuscular Hemoglobin 28.4 PG Mean Corpuscular Hemoglobin 33.4 % Concent Red Cell Distribution Width 16.2 % Platelet Count 210 TH/MM3 Mean Platelet Volume 9.2 FL Neutrophils (%) (Auto) 58.0 % Lymphocytes (%) (Auto) 23.1 % Monocytes (%) (Auto) 10.2 % Eosinophils (%) (Auto) 8.1 % Basophils (%) (Auto) 0.6 % Neutrophils # (Auto) 4.5 TH/MM3 Lymphocytes # (Auto) 1.8 TH/MM3 Monocytes # (Auto) 0.8 TH/MM3 Eosinophils # (Auto) 0.6 TH/MM3 Basophils # (Auto) 0.0 TH/MM3 CBC Comment DIFF FINAL Differential Comment Prothrombin Time 15.3 SEC Prothromb Time International 1.4 RATIO Ratio Activated Partial 36.1 SEC Thromboplast Time Sodium Level 139 MEQ/L Potassium Level 3.5 MEQ/L Chloride Level 104 MEQ/L Carbon Dioxide Level 25.9 MEQ/L Anion Gap 9 MEQ/L Blood Urea Nitrogen 28 MG/DL Creatinine 1.17 MG/DL Estimat Glomerular Filtration 44 ML/MIN Rate Random Glucose 137 MG/DL Calcium Level 10.3 MG/DL I discussed the patient with my attending physician. The patient does appear to be a bit dehydrated but other than that her hemoglobin is stable. She agrees that the patient can be discharged home to follow-up with Dr. Moon. I have gone over return instructions with the patient and she agrees to return immediately with any acute worsening of symptoms. Patient will be discharged at this time. [facility] Point of Care Internal Pos. & Neg. Controls: Passed Fecal Specimen Occult Blood: Positive Diagnosis Primary Impression: Hematochezia Additional Impression: Anticoagulated Referrals: Primary Care Physician Patient Instructions: Gastrointestinal Bleeding (ED), General Instructions Additional Instructions: Continue medication as prescribed Contact Dr. Moon's office tomorrow for follow-up Return immediately with any acute worsening of symptoms Med/Other Pt SpecificInfo: No Change to Meds Disposition: 01 DISCHARGE HOME Condition: Stable [place] Feb 22, 2017 21:27
[2017-02-22 21:29] LABS: AUTOMATED NEUTROPHIL # 4.5 TH/MM3 (1.8-7.7); BASOPHIL % 0.6 % (0.0-2.0); EOSINOPHIL # 0.6 TH/MM3 (0-0.4); EOSINOPHIL % 8.1 % (0.0-4.0); HEMATOCRIT 37.9 % (35.0-46.0); HEMO FLAGS DIFF FINAL; LYMPH % 23.1 % (9.0-44.0); LYMPHOCYTE # 1.8 TH/MM3 (1.0-4.8); MEAN CELL VOLUME 84.9 FL (80.0-100.0); MEAN CORPUSCULAR HEMOGLOBIN 28.4 PG (27.0-34.0); MEAN CORPUSCULAR HGB CONC 33.4 % (32.0-36.0); MONO % 10.2 % (0.0-8.0); PLATELET COUNT 210 TH/MM3 (150-450); RED BLOOD COUNT 4.47 MIL/MM3 (4.00-5.30); RED CELL DISTRIBUTION WIDTH 16.2 % (11.6-17.2); WHITE BLOOD COUNT 7.7 TH/MM3 (4.0-11.0)
[2017-02-22 21:48] LABS: APTT (PATIENT) 36.1 SEC (24.3-30.1); INTERNATIONAL NORMALIZED RATIO 1.4 RATIO; PROTHROMBIN TIME - PATIENT 15.3 SEC (9.8-11.6)
[2017-02-22 21:49] LABS: BICARBONATE 25.9 MEQ/L (21.0-32.0); POTASSIUM 3.5 MEQ/L (3.5-5.1)
== END 2017-02-22 22:14 | disposition home or self-care (01) ==
LOC: NEPC 17:52
DX: K92.1 Melena (principal); Z79.01 Long term (current) use of anticoagulants; E11.9 Type 2 diabetes mellitus without complications; I10 Essential (primary) hypertension; E03.9 Hypothyroidism, unspecified; Z98.890 Other specified postprocedural states; Z72.0 Tobacco use; Z79.84 Long term (current) use of oral hypoglycemic drugs; Z86.79 Personal history of other diseases of the circulatory system; Z86.19 Personal history of other infectious and parasitic diseases; Z87.39 Personal history of other diseases of the musculoskeletal system and connective tissue; Z86.69 Personal history of other diseases of the nervous system and sense organs
CPT/HCPCS: 80048; 85025; 85610; 85730; 99283

== ENCOUNTER 2018-02-27 09:58 | Inpatient (IN) ==
--- NOTE | 2018-02-27 10:13 | P.HPUP ---
The Pre-Admit History and Physical Examination regarding the above named patient was reviewed (including, but not limited to, vital signs, heart, lungs, co-morbid conditions), and upon re-examination it is noted that: the patient's condition has not significantly changed since the last examination.
[2018-02-27] MEDS ORDERED: Neostigmine Inj 5 MG/5 ML Syringe IV.PUSH ONE (10:49)
[2018-02-27] MEDS ORDERED: Lidocaine PF 1% Inj 5 ML Syringe INFILTRATN ONE (10:49)
[2018-02-27] MEDS ORDERED: Phenylephrine/NS 1000 MCG/10ML Syringe IV.PUSH ONE (10:49)
[2018-02-27] MEDS ORDERED: Glycopyrrolate Inj 1 MG/5 ML Syringe IV.PUSH ONE (10:49)
[2018-02-27] MEDS ORDERED: Labetalol HCl Inj 100 MG/20 ML Vial IV.CONT ONE (10:49)
[2018-02-27] MEDS ORDERED: Normosol-R pH 7.4 Inj 1,000 ML IV.CONT ONE (10:49)
[2018-02-27] MEDS ORDERED: Esmolol Bolus Inj 100 MG/10 ML Vial IV.PUSH ONE (10:49)
[2018-02-27] MEDS ORDERED: Chlorhexidine Gluconate 2% 1 Pack (2 Cloths) TOPICAL SCH (11:00)
[2018-02-27] MEDS ORDERED: Sodium Chlor 0.9% Inj 500 ML IV.SIG SCH (11:00)
[2018-02-27] MEDS ORDERED: Metoprolol Tartrate 25 MG Tablet PO SCH (11:00)
[2018-02-27] MEDS ORDERED: Dextrose 5%/NaCl 0.9% Inj 1,000 ML IV.SIG SCH (11:00)
[2018-02-27] MEDS ORDERED: Bupivacaine PF 0.5% Inj 30 ML Vial ONE ×4 (13:00→13:01)
[2018-02-27] MEDS ORDERED: Ketorolac Inj 30 MG/ML (IVP) Vial IV.PUSH PRN (15:11)
[2018-02-27] MEDS ORDERED: Acetaminophen 325 MG Tablet PO PRN (15:11)
[2018-02-27] MEDS ORDERED: Potassium Chlor 40 mEq Premix 40 MEQ/100 ML PIGGYBACK IV.SIG PRN (15:11)
[2018-02-27] MEDS ORDERED: Potassium Chlor 20 mEq Premix 20 MEQ/100 ML PIGGYBACK IV.SIG PRN (15:11)
[2018-02-27] MEDS ORDERED: fentaNYL Citrate Inj 100 MCG/2 ML Ampul ONE (15:29)
[2018-02-27] MEDS: KCL 20 mEq/D5W/NaCl 0.9% Inj 1,000 ML IV.CONT SCH ×2 (15:30→21:57)
[2018-02-27] MEDS ORDERED: Morphine Inj 4 MG/ML Vial ONE ×2 (15:36→15:55)
[2018-02-27] MEDS ORDERED: Morphine Inj 30 MG/30 ML PCA.VIAL PCA ONE (15:55)
[2018-02-27] MEDS ORDERED: Naloxone Inj 0.4 MG/ML Vial IV.PUSH PRN (16:25)
[2018-02-27] MEDS ORDERED: *Meperidine Inj 25 MG/ML Vial PERIprocedural Use ONLY ONE (17:03)
[2018-02-27] MEDS: Morphine Inj 30 MG/30 ML PCA.VIAL PCA PRN (18:29)
[2018-02-28] MEDS: KCL 20 mEq/D5W/NaCl 0.9% Inj 1,000 ML IV.CONT SCH ×2 (05:43→11:41)
[2018-02-28] MEDS: Pantoprazole Inj 40 MG Vial IV.PUSH SCH (09:48)
[2018-02-28] MEDS: Thyroid 60 MG Tablet PO SCH (09:49)
[2018-02-28 10:21] LABS: Baso % (Auto) 0.1 % (0.0-2.0); Hematocrit 23.5 % (35.0-46.0); Lymph # (Auto) 0.6 th/mm3 (1.0-4.8); Lymph % (Auto) 3.7 % (9.0-44.0); Mean Corpuscular HGB Conc 34.2 % (32.0-36.0); Mean Corpuscular Hemoglobin 28.5 pg (27.0-34.0); Mean Corpuscular Volume 83.3 fL (80.0-100.0); Mean Platelet Volume 7.4 fL (7.0-11.0); Mono # (Auto) 0.8 th/mm3 (0.0-0.9); Mono % (Auto) 5.1 % (0.0-8.0); Neut # (Auto) 14.1 th/mm3 (1.8-7.7); Neut % (Auto) 91.1 % (16.0-70.0); Platelet Count 318 th/mm3 (150-450); Red Blood Count 2.83 mil/mm3 (4.00-5.30); White Blood Count 15.5 th/mm3 (4.0-11.0)
[2018-02-28 11:07] LABS: Calcium 7.2 mg/dL (8.5-10.1); Carbon Dioxide 22.3 meq/L (21.0-32.0); Potassium 6.4 meq/L (3.5-5.1)
[2018-02-28 11:22] LABS: Total Protein 5.3 g/dL (6.4-8.2)
[2018-02-28] MEDS ORDERED: Dextrose 50% in Water 50 ML Vial IV.PUSH PRN (17:11)
[2018-02-28] MEDS: Insulin NovoLOG Aspart Correctional Sugar Inj SQ SCH ×2 (18:05→21:17)
[2018-02-28] MEDS: Morphine Inj 30 MG/30 ML PCA.VIAL PCA PRN (21:13)
--- NOTE | 2018-02-28 22:36 | MP ---
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 PROCEDURE: Exploratory laparotomy with a proctosigmoidectomy, low pelvic anastomosis and intraoperative colonoscopy, omental flap. POSTOPERATIVE DIAGNOSIS: Diverticulitis with colovaginal fistula. SURGEON: Jacob Grissom MD STENOGRAPHER SECRETARY: Kwasi Macias MD. DESCRIPTION OF PROCEDURE: The patient was placed in the supine position. After adequate general anesthesia, her legs were placed in universal stirrups and supported appropriately. Abdomen and perineum were then prepped with Betadine solution and draped in the usual sterile fashion. With Dr. Macias's assistance the abdomen was opened through an infraumbilical transverse incision, dividing the rectus muscles with electrocautery. There were quite a few adhesions to the parietal peritoneum from a previous midline incision and these were taken down with electrocautery. Exploration revealed a rock hard mass in the rectosigmoid, which was stuck down to the vaginal apex and pelvic floor. The proximal colon was palpated and felt to be pretty unremarkable. The small bowel was run from ligament of Treitz down to the ileocecal valve and felt to be normal. Stomach and duodenum were normal. Liver had no palpable masses. The uterus was absent as were the ovaries. The great vessels were of normal caliber and only mildly calcified. First, the sigmoid colon was mobilized medially by dividing along the white line of Toldt. Left ureter was identified and carefully preserved. Dissection then proceeded up the left gutter, freeing the left colon off the retroperitoneum, taking down the splenic flexure, entering the lesser sac and taking the gastrocolic omentum off the transverse colon. The right retroperitoneal space was then opened and the bowel dissected off the presacral fascia down to the pelvic floor. The pedicle of the superior hemorrhoidal vessels identified and divided between Kellys obtaining hemostasis with Vicryl ties. Dissection then proceeded anteriorly with some difficulty, freeing the inflammatory mass off the left pelvic sidewall, the bladder and the vaginal apex. With a sponge stick in the vagina, we were able to develop a plane getting below the inflammatory process in the soft or more pliable rectal tissue. At this point, the mesorectum was divided with electrocautery and the bowel finally divided with a contour stapling device. The bowel was incised to reach the rectal pouch without tension and with good blood supply taking the left colic vessels between Kellys obtaining hemostasis with Vicryl ties for full left mobilization. At the appropriate point, the marginal artery was taken and the bowel divided between a pursestring suture device and a Maeve clamp removing the specimen. The end of the bowel was then sized to accept an EEA stapling anvil and this was secured with a pursestring suture. Dr. Macias inserted the stapling instrument transanally and, under direct vision, advanced to the end of the rectal pouch and the trocar advanced. The stapler was then reassembled and the bowel aligned properly. The stapled closed and fired. Upon withdrawal, 2 complete donuts of tissue was seen. Dr. Macias then inserted the colonoscope and with some abdominal assistance it was passed up through the proximal colon around towards the cecum. Upon withdrawal, no polyps were seen. No inflammatory changes were seen. Gentle insufflation did confirm an airtight anastomosis. The abdomen was then irrigated copiously with normal saline. The abscess in the vaginal apex was curetted and opened for further debridement. Hemostasis was achieved at all points. Christopher-Weiner drain was placed down into the presacral space and brought up through a stab wound in the right lower quadrant, secured to the skin with a nylon suture. The omentum was passed down the left gutter and wrapped around the anastomosis preventing it from coming close to the vaginal abscess. The abdominal incision was then closed, anatomically in 2 layers using #1 PDS sutures to reapproximate the respective fascial layers. On-Q catheters were placed into the rectus sheaths on both sides and brought up through subcutaneous tunnels above the transverse incision. Subcutaneous tissue was irrigated copiously and the skin closed with a running subcuticular Vicryl suture. Wound area washed with normal saline and dried, sterile dressing of Telfa and gauze applied. The patient tolerated the procedure quite well and was brought to the recovery room in stable condition. Sponge and needle counts were correct at the end of the procedure. MD RON Ariza/SA , 10:12 PM , 10:22 PM
--- NOTE | 2018-02-28 23:01 | P.PNCS ---
Subjective Interval history: C/R Surg POD #1 afebrile, VSS UO good AMARI serous Objective Result Diagrams: 02/28/18 09:46 02/28/18 09:46 Objective Remarks: PE alert Abd - soft, wound dry, min tympany Assessment and Plan - Plan Imp: stable post-op OOB tx to floor decr IVF
[2018-03-01] MEDS: KCL 20 mEq/D5W/NaCl 0.9% Inj 1,000 ML IV.CONT SCH ×2 (00:26→21:06)
[2018-03-01 05:04] LABS: Baso % (Auto) 0.2 % (0.0-2.0); Eos # (Auto) 0.1 th/mm3 (0.0-0.4); Eos % (Auto) 0.4 % (0.0-4.0); Hematocrit 24.3 % (35.0-46.0); Hemoglobin 8.1 gm/dL (11.6-15.3); Lymph # (Auto) 1.8 th/mm3 (1.0-4.8); Lymph % (Auto) 8.9 % (9.0-44.0); Mean Corpuscular HGB Conc 33.5 % (32.0-36.0); Mean Corpuscular Hemoglobin 26.9 pg (27.0-34.0); Mean Corpuscular Volume 80.1 fL (80.0-100.0); Mean Platelet Volume 7.4 fL (7.0-11.0); Mono # (Auto) 1.5 th/mm3 (0.0-0.9); Mono % (Auto) 7.7 % (0.0-8.0); Neut # (Auto) 16.4 th/mm3 (1.8-7.7); Neut % (Auto) 82.8 % (16.0-70.0); Platelet Count 367 th/mm3 (150-450); Red Blood Count 3.03 mil/mm3 (4.00-5.30); Red Cell Distribution Width 15.9 % (11.6-17.2); White Blood Count 19.8 th/mm3 (4.0-11.0)
[2018-03-01 05:31] LABS: Calcium 8.6 mg/dL (8.5-10.1); Carbon Dioxide 23.5 meq/L (21.0-32.0); Potassium 4.2 meq/L (3.5-5.1)
[2018-03-01] MEDS: Pantoprazole Inj 40 MG Vial IV.PUSH SCH (10:10)
[2018-03-01] MEDS: Insulin NovoLOG Aspart Correctional Sugar Inj SQ SCH ×4 (10:11→21:05)
[2018-03-01] MEDS: Thyroid 60 MG Tablet PO SCH (10:11)
--- NOTE | 2018-03-01 23:12 | P.PNCS ---
Subjective Interval history: C/R Surg POD #2 afebrile, VSS UO good some flatus Objective Result Diagrams: 03/01/18 04:37 03/01/18 04:37 Objective Remarks: PE alert Abd - soft, wound dry, min tympany Assessment and Plan - Plan Imp: OOB tx to floor decr IVF adv diet
[2018-03-02] MEDS: KCL 20 mEq/D5W/NaCl 0.9% Inj 1,000 ML IV.CONT SCH ×3 (04:00→20:51)
[2018-03-02] MEDS: Pantoprazole Inj 40 MG Vial IV.PUSH SCH (08:42)
[2018-03-02] MEDS: Insulin NovoLOG Aspart Correctional Sugar Inj SQ SCH ×4 (08:43→20:50)
[2018-03-02] MEDS: Thyroid 60 MG Tablet PO SCH (08:44)
--- NOTE | 2018-03-02 11:11 | P.PNCS ---
Subjective Interval history: C/R Surg POD # 3 afebrile, VSS miriam PO on-Q dc'd +stool Objective Result Diagrams: 03/01/18 04:37 03/01/18 04:37 Objective Remarks: PE alert Abd -s oft, wound dry. min tympany Assessment and Plan - Plan Imp: OOB decr IVF adv diet dc plans
[2018-03-03] MEDS: KCL 20 mEq/D5W/NaCl 0.9% Inj 1,000 ML IV.CONT SCH ×2 (05:06→20:56)
[2018-03-03] MEDS: Thyroid 60 MG Tablet PO SCH (09:59)
[2018-03-03] MEDS: Pantoprazole Inj 40 MG Vial IV.PUSH SCH (09:59)
[2018-03-03] MEDS ORDERED: Sodium Chlor 0.9% Inj 250 ML IV.SIG SCH (11:00)
--- NOTE | 2018-03-03 11:00 | P.PNCS ---
Subjective Interval history: C/R Surg POD #5 afebrile, VSS UO good dizzy this AM Objective Result Diagrams: 03/01/18 04:37 03/01/18 04:37 Objective Remarks: PE Abd - soft, min tympany, non-tender Assessment and Plan - Plan Imp: OOB decr IVF hold diet tx PRBC's
[2018-03-03] MEDS: Insulin NovoLOG Aspart Correctional Sugar Inj SQ SCH ×4 (15:45→23:00)
[2018-03-04] MEDS: KCL 20 mEq/D5W/NaCl 0.9% Inj 1,000 ML IV.CONT SCH ×2 (01:29→14:27)
[2018-03-04 07:56] LABS: Baso % (Auto) 0.1 % (0.0-2.0); Eos # (Auto) 0.5 th/mm3 (0.0-0.4); Eos % (Auto) 3.2 % (0.0-4.0); Hematocrit 38.3 % (35.0-46.0); Lymph % (Auto) 13.6 % (9.0-44.0); Mean Corpuscular Hemoglobin 27.1 pg (27.0-34.0); Mean Corpuscular Volume 79.8 fL (80.0-100.0); Mean Platelet Volume 7.7 fL (7.0-11.0); Mono # (Auto) 0.9 th/mm3 (0.0-0.9); Mono % (Auto) 6.3 % (0.0-8.0); Neut # (Auto) 11.3 th/mm3 (1.8-7.7); Neut % (Auto) 76.8 % (16.0-70.0); Platelet Count 416 th/mm3 (150-450); Red Blood Count 4.79 mil/mm3 (4.00-5.30); White Blood Count 14.7 th/mm3 (4.0-11.0)
[2018-03-04] MEDS: Insulin NovoLOG Aspart Correctional Sugar Inj SQ SCH ×4 (08:08→20:18)
[2018-03-04 08:22] LABS: Calcium 8.3 mg/dL (8.5-10.1); Carbon Dioxide 23.8 meq/L (21.0-32.0); Potassium 3.4 meq/L (3.5-5.1)
[2018-03-04] MEDS: Thyroid 60 MG Tablet PO SCH (09:50)
[2018-03-04] MEDS: Pantoprazole Inj 40 MG Vial IV.PUSH SCH (09:54)
[2018-03-05] MEDS: Insulin NovoLOG Aspart Correctional Sugar Inj SQ SCH ×4 (08:41→20:21)
[2018-03-05] MEDS: Thyroid 60 MG Tablet PO SCH (08:41)
[2018-03-05] MEDS: Pantoprazole Inj 40 MG Vial IV.PUSH SCH (08:42)
--- NOTE | 2018-03-05 21:35 | P.PNCS ---
Subjective Interval history: C/R Surg afebrile, VSS UO good +BM Objective Result Diagrams: 03/04/18 06:54 03/04/18 06:54 Objective Remarks: PE Alert Abd - soft, wound dry, AMARI mod output Assessment and Plan - Plan Imp: OOB decr IVF reg diet dc plans
[2018-03-06] MEDS: Insulin NovoLOG Aspart Correctional Sugar Inj SQ SCH ×2 (08:28→12:55)
[2018-03-06] MEDS: Thyroid 60 MG Tablet PO SCH (08:34)
[2018-03-06] MEDS: Pantoprazole Inj 40 MG Vial IV.PUSH SCH (08:34)
--- NOTE | 2018-03-06 16:03 | P.DCO ---
- Physical Therapy Order: Evaluate and treat, Improve ambulation, Strength and gait training - Home Health Nursing Order: Signs/symptoms of disease process, Wound care and dressing changes - Certification I have seen patient Arianna Pascual on 03/06/18. My clinical findings support the need for the requested home health care services because: Limited mobility due to disease progression, Deconditioned with increased weakness, High risk of falls I certify that my clinical findings support that this patient is homebound because: Post-op weakness, Unsteady gait/balance, Need for psychosocial assistance, Unable to use public transportation
--- NOTE | 2018-04-11 08:01 | MD ---
cc: Jacob Grissom MD, Dr. DATE OF DISCHARGE: 03/06/2018 ADMITTING DIAGNOSIS: Diverticulitis with obstruction. PROCEDURES: 02/27/2018, exploratory laparotomy with proctosigmoidectomy, low pelvic anastomosis, intraoperative colonoscopy and omental flap. DISCHARGE DIAGNOSES: 1. Diverticulitis with a colovaginal fistula. 2. Normal colonoscopy. HISTORY OF PRESENT ILLNESS: Ms. Pascual is an 87-year-old female who has been seen over the last several weeks for symptoms of crampy abdominal pain and gas distention. The patient evaluation revealed narrowing and thickening of the sigmoid colon due to diverticular disease. Recently, she started to pass gas and have stool coming through the vagina consistent with a rectovaginal fistula. The patient does go to bathroom 6-10 times a day with quite a bit of loose diarrhea. Denies any nausea, vomiting. Does have pain in the left lower quadrant. No fever. No rectal bleeding. Denies melena. She says the weight has been stable, but she has no energy and feels tired all the time. Weight has been fairly stable. Please see history and physical for more complete past medical and surgical history. PERTINENT PHYSICAL: GENERAL: Very pleasant older female in no acute distress. ABDOMEN: Soft, doughy not really distended. Normal bowel sounds. No rebound or guarding, any masses. There is some fullness in the left lower quadrant. Anal inspection revealed benign canal. Digital exam revealed good tone with some masses and tenderness with fullness in the pelvic floor. HOSPITAL COURSE: After admission, the patient was taken to the operating room, at which point, she underwent an exploratory laparotomy with proctosigmoidectomy, low pelvic anastomosis, intraoperative colonoscopy, and omental flap. She was found to have a rock hard segment of rectosigmoid stuck down to the vaginal apex consistent with diverticulitis and fistula formation to the vagina. Postop colonoscopy was pretty unremarkable. The patient tolerated the procedure quite well. Initially, she was stabilized in the progressive care unit. Her GI tract function returned quite promptly and her diet was advanced accordingly. She was able to ambulate with some physical therapy. Her IV fluids were tapered and she was doing well enough to be considered for discharge home on 03/06/2018. PATHOLOGY: Final pathology report did reveal segment of rectosigmoid with acute on chronic diverticulitis with fistulization and luminal stenosis. No signs of malignancy. DISCHARGE INSTRUCTIONS: The patient was discharged eating a regular diet. She was encouraged to ambulate daily, avoiding any heavy lifting or straining. All preop medications were to be resumed. The patient will be seen in the office in 1 weeks' time for routine followup. Any problems prior to the scheduled office visit, she was encouraged to call for more urgent attention. MD RON Ariza/feng/kd , 10:08 PM , 10:18 PM
== END 2018-03-06 18:01 | disposition home health service (06) ==
LOC: HSDI 09:58 → HCPC 19:42 → N07 02-28 18:40
PROVIDERS: ADMIT Colon & Rectal Surgery; ATTEND Colon & Rectal Surgery
DX: N82.3 Fistula of vagina to large intestine; K57.32 Diverticulitis of large intestine without perforation or abscess without bleeding; Z88.2 Allergy status to sulfonamides; Z79.01 Long term (current) use of anticoagulants; E78.5 Hyperlipidemia, unspecified; R82.99 Other abnormal findings in urine; I10 Essential (primary) hypertension; I69.951 Hemiplegia and hemiparesis following unspecified cerebrovascular disease affecting right dominant side; I48.91 Unspecified atrial fibrillation; M19.90 Unspecified osteoarthritis, unspecified site; Z95.5 Presence of coronary angioplasty implant and graft; I25.10 Atherosclerotic heart disease of native coronary artery without angina pectoris; I27.20 Pulmonary hypertension, unspecified; I08.1 Rheumatic disorders of both mitral and tricuspid valves; I44.7 Left bundle-branch block, unspecified; K56.690 Other partial intestinal obstruction